=== PATIENT | female | born 1955 | race Caucasian/White ===

== ENCOUNTER 2020-06-27 23:01 | Inpatient (IN) | payer BC, MEDICARE ==
--- NOTE | 2020-06-27 23:15 | ED ---
Altered Mental Status HPI - General Stated Complaint: Altered Mental Status Time Seen by Provider: 06/27/20 23:12 Source: RN notes reviewed, old records reviewed Limitations: no limitations - History of Present Illness Initial Comments: This is a 65-year-old female DF for evaluation patient has by EMS for altered mental status decreased level responsiveness. Patient's seen by who wanted EMS called for patient to be evaluated MD Complaint: altered mental status, confusion, decreased responsiveness, weakness -: unknown Severity: moderate Consistency of Symptoms: getting worse Context: history of similar presentation, recent fever, seizure disorder Associated Symptoms: denies other symptoms Treatments Prior to Arrival: IV fluid, oxygen - Related Data Allergies Allergy/AdvReac Type Severity Reaction Status Date / Time codeine Allergy Rash/Hives Verified 06/27/20 23:22 Review of Systems ROS Statement: Those systems with pertinent positive or pertinent negative responses have been documented in the HPI. ROS Other: All systems not noted in ROS Statement are negative. General Exam Limitations: altered mental status, physical limitation General appearance: alert, in no apparent distress, lethargic, obese Head exam: Present: atraumatic, normocephalic, normal inspection Eye exam: Present: normal appearance, PERRL, EOMI. Absent: scleral icterus, conjunctival injection, periorbital swelling ENT exam: Present: normal exam, mucous membranes moist Neck exam: Present: normal inspection. Absent: tenderness, meningismus, lymphadenopathy Respiratory exam: Present: decreased breath sounds. Absent: respiratory distress, wheezes, rales, rhonchi, stridor Cardiovascular Exam: Present: normal rhythm, tachycardia, normal heart sounds. Absent: systolic murmur, diastolic murmur, rubs, gallop, clicks GI/Abdominal exam: Present: soft, normal bowel sounds. Absent: distended, tenderness, guarding, rebound, rigid Extremities exam: Present: normal inspection, full ROM, normal capillary refill. Absent: tenderness, pedal edema, joint swelling, calf tenderness Back exam: Present: normal inspection Neurological exam: Present: alert, oriented X3, CN II-XII intact Psychiatric exam: Present: normal affect, normal mood Skin exam: Present: warm, dry, intact, normal color. Absent: rash Course Vital Signs 06/27/20 23:04 Temperature 98.2 F Pulse Rate 123 H Respiratory 24 Rate Blood Pressure 137/78 O2 Sat by Pulse 98 Oximetry - Reevaluation(s) Reevaluation #1: 06/28/20 00:48 Medical record is reviewed Reevaluation #2: 06/28/20 00:48 Patient showing mild to moderate clinical improvement Reevaluation #3: 06/28/20 00:48 No recurrent seizure here in the ER Medical Decision Making - Medical Decision Making 65 female DF for evaluation of severe weakness altered mental status likely seizure with postictal. Patient does have mild non-ST elevated RI with significant dehydration kidney injury urinary tract infection - Lab Data Result diagrams: 06/27/20 23:27 06/27/20 23:27 Lab Results 06/27/20 06/27/20 06/27/20 Range/Units 23:27 23:27 23:27 WBC 14.2 H (3.8-10.6) k/uL RBC 4.43 (3.80-5.40) m/uL Hgb 14.4 (11.4-16.0) gm/dL Hct 42.3 (34.0-46.0) % MCV 95.6 (80.0-100.0) fL MCH 32.6 (25.0-35.0) pg MCHC 34.1 (31.0-37.0) g/dL RDW 13.9 (11.5-15.5) % Plt Count 298 (150-450) k/uL MPV 7.6 Neutrophils % 82 % Lymphocytes % 8 % Monocytes % 7 % Eosinophils % 1 % Basophils % 0 % Neutrophils # 11.7 H (1.3-7.7) k/uL Lymphocytes # 1.2 (1.0-4.8) k/uL Monocytes # 1.0 (0-1.0) k/uL Eosinophils # 0.1 (0-0.7) k/uL Basophils # 0.0 (0-0.2) k/uL PT 10.8 (9.0-12.0) sec INR 1.0 (<1.2) APTT 25.4 (22.0-30.0) sec Sodium (137-145) mmol/L Potassium (3.5-5.1) mmol/L Chloride (98-107) mmol/L Carbon Dioxide (22-30) mmol/L Anion Gap mmol/L BUN (7-17) mg/dL Creatinine (0.52-1.04) mg/dL Est GFR (CKD-EPI)AfAm (>60 ml/min/1.73 sqM) Est GFR (CKD-EPI)NonAf (>60 ml/min/1.73 sqM) Glucose (74-99) mg/dL POC Glucose (mg/dL) (75-99) mg/dL POC Glu [employer] ID Plasma Lactic Acid Bob (0.7-2.0) mmol/L Calcium (8.4-10.2) mg/dL Magnesium (1.6-2.3) mg/dL Total Bilirubin (0.2-1.3) mg/dL AST (14-36) U/L ALT (4-34) U/L Alkaline Phosphatase (38-126) U/L Ammonia (<30) umol/L Lactate Dehydrogenase (313-618) U/L Creatine Kinase (30-135) U/L Troponin I (0.000-0.034) ng/mL C-Reactive Protein (<1.0) mg/dL Total Protein (6.3-8.2) g/dL Albumin (3.5-5.0) g/dL Urine Color Yellow Urine Appearance Turbid H (Clear) Urine pH 8.0 (5.0-8.0) Ur Specific [place] 1.013 (1.001-1.035) Urine Protein 2+ H (Negative) Urine Glucose (UA) Negative (Negative) Urine Ketones Negative (Negative) Urine Blood Large H (Negative) Urine Nitrite Positive H (Negative) Urine Bilirubin Negative (Negative) Urine Urobilinogen <2.0 (<2.0) mg/dL Ur Leukocyte Esterase Large H (Negative) Urine RBC 140 H (0-5) /hpf Urine WBC >182 H (0-5) /hpf Ur Squamous Epith Cells 6 H (0-4) /hpf Amorphous Sediment Rare H (None) /hpf Urine Bacteria Many H (None) /hpf Urine Mucus Occasional H (None) /hpf Urine Yeast (Budding) Many H (None) /hpf Urine Opiates Screen Not Detected (NotDetected) Ur Oxycodone Screen Not Detected (NotDetected) Urine Methadone Screen Not Detected (NotDetected) Ur Propoxyphene Screen Not Detected (NotDetected) Ur Barbiturates Screen Not Detected (NotDetected) U Tricyclic Antidepress Not Detected (NotDetected) Ur Phencyclidine Scrn Not Detected (NotDetected) Ur Amphetamines Screen Not Detected (NotDetected) U Methamphetamines Scrn Not Detected (NotDetected) U Benzodiazepines Scrn Not Detected (NotDetected) Urine Cocaine Screen Not Detected (NotDetected) U Marijuana (THC) Screen Not Detected (NotDetected) Serum Alcohol mg/dL 06/27/20 06/27/20 06/27/20 Range/Units 23:27 23:27 23:27 WBC (3.8-10.6) k/uL RBC (3.80-5.40) m/uL Hgb (11.4-16.0) gm/dL Hct (34.0-46.0) % MCV (80.0-100.0) fL MCH (25.0-35.0) pg MCHC (31.0-37.0) g/dL RDW (11.5-15.5) % Plt Count (150-450) k/uL MPV Neutrophils % % Lymphocytes % % Monocytes % % Eosinophils % % Basophils % % Neutrophils # (1.3-7.7) k/uL Lymphocytes # (1.0-4.8) k/uL Monocytes # (0-1.0) k/uL Eosinophils # (0-0.7) k/uL Basophils # (0-0.2) k/uL PT (9.0-12.0) sec INR (<1.2) APTT (22.0-30.0) sec Sodium 128 L (137-145) mmol/L Potassium 4.0 (3.5-5.1) mmol/L Chloride 91 L (98-107) mmol/L Carbon Dioxide 27 (22-30) mmol/L Anion Gap 10 mmol/L BUN 20 H (7-17) mg/dL Creatinine 0.79 (0.52-1.04) mg/dL Est GFR (CKD-EPI)AfAm >90 (>60 ml/min/1.73 sqM) Est GFR (CKD-EPI)NonAf 80 (>60 ml/min/1.73 sqM) Glucose 166 H (74-99) mg/dL POC Glucose (mg/dL) (75-99) mg/dL POC Glu [employer] ID Plasma Lactic Acid Bob 2.2 H* (0.7-2.0) mmol/L Calcium 9.2 (8.4-10.2) mg/dL Magnesium 1.6 (1.6-2.3) mg/dL Total Bilirubin 0.6 (0.2-1.3) mg/dL AST 26 (14-36) U/L ALT 13 (4-34) U/L Alkaline Phosphatase 108 (38-126) U/L Ammonia <9 (<30) umol/L Lactate Dehydrogenase 620 H (313-618) U/L Creatine Kinase 28 L (30-135) U/L Troponin I 0.184 H* (0.000-0.034) ng/mL C-Reactive Protein 21.3 H (<1.0) mg/dL Total Protein 5.8 L (6.3-8.2) g/dL Albumin 2.8 L (3.5-5.0) g/dL Urine Color Urine Appearance (Clear) Urine pH (5.0-8.0) Ur Specific [place] (1.001-1.035) Urine Protein (Negative) Urine Glucose (UA) (Negative) Urine Ketones (Negative) Urine Blood (Negative) Urine Nitrite (Negative) Urine Bilirubin (Negative) Urine Urobilinogen (<2.0) mg/dL Ur Leukocyte Esterase (Negative) Urine RBC (0-5) /hpf Urine WBC (0-5) /hpf Ur Squamous Epith Cells (0-4) /hpf Amorphous Sediment (None) /hpf Urine Bacteria (None) /hpf Urine Mucus (None) /hpf Urine Yeast (Budding) (None) /hpf Urine Opiates Screen (NotDetected) Ur Oxycodone Screen (NotDetected) Urine Methadone Screen (NotDetected) Ur Propoxyphene Screen (NotDetected) Ur Barbiturates Screen (NotDetected) U Tricyclic Antidepress (NotDetected) Ur Phencyclidine Scrn (NotDetected) Ur Amphetamines Screen (NotDetected) U Methamphetamines Scrn (NotDetected) U Benzodiazepines Scrn (NotDetected) Urine Cocaine Screen (NotDetected) U Marijuana (THC) Screen (NotDetected) Serum Alcohol <10 mg/dL 06/27/20 Range/Units 23:32 WBC (3.8-10.6) k/uL RBC (3.80-5.40) m/uL Hgb (11.4-16.0) gm/dL Hct (34.0-46.0) % MCV (80.0-100.0) fL MCH (25.0-35.0) pg MCHC (31.0-37.0) g/dL RDW (11.5-15.5) % Plt Count (150-450) k/uL MPV Neutrophils % % Lymphocytes % % Monocytes % % Eosinophils % % Basophils % % Neutrophils # (1.3-7.7) k/uL Lymphocytes # (1.0-4.8) k/uL Monocytes # (0-1.0) k/uL Eosinophils # (0-0.7) k/uL Basophils # (0-0.2) k/uL PT (9.0-12.0) sec INR (<1.2) APTT (22.0-30.0) sec Sodium (137-145) mmol/L Potassium (3.5-5.1) mmol/L Chloride (98-107) mmol/L Carbon Dioxide (22-30) mmol/L Anion Gap mmol/L BUN (7-17) mg/dL Creatinine (0.52-1.04) mg/dL Est GFR (CKD-EPI)AfAm (>60 ml/min/1.73 sqM) Est GFR (CKD-EPI)NonAf (>60 ml/min/1.73 sqM) Glucose (74-99) mg/dL POC Glucose (mg/dL) 149 H (75-99) mg/dL POC Glu [employer] ID Florian Becerril Plasma Lactic Acid Bob (0.7-2.0) mmol/L Calcium (8.4-10.2) mg/dL Magnesium (1.6-2.3) mg/dL Total Bilirubin (0.2-1.3) mg/dL AST (14-36) U/L ALT (4-34) U/L Alkaline Phosphatase (38-126) U/L Ammonia (<30) umol/L Lactate Dehydrogenase (313-618) U/L Creatine Kinase (30-135) U/L Troponin I (0.000-0.034) ng/mL C-Reactive Protein (<1.0) mg/dL Total Protein (6.3-8.2) g/dL Albumin (3.5-5.0) g/dL Urine Color Urine Appearance (Clear) Urine pH (5.0-8.0) Ur Specific [place] (1.001-1.035) Urine Protein (Negative) Urine Glucose (UA) (Negative) Urine Ketones (Negative) Urine Blood (Negative) Urine Nitrite (Negative) Urine Bilirubin (Negative) Urine Urobilinogen (<2.0) mg/dL Ur Leukocyte Esterase (Negative) Urine RBC (0-5) /hpf Urine WBC (0-5) /hpf Ur Squamous Epith Cells (0-4) /hpf Amorphous Sediment (None) /hpf Urine Bacteria (None) /hpf Urine Mucus (None) /hpf Urine Yeast (Budding) (None) /hpf Urine Opiates Screen (NotDetected) Ur Oxycodone Screen (NotDetected) Urine Methadone Screen (NotDetected) Ur Propoxyphene Screen (NotDetected) Ur Barbiturates Screen (NotDetected) U Tricyclic Antidepress (NotDetected) Ur Phencyclidine Scrn (NotDetected) Ur Amphetamines Screen (NotDetected) U Methamphetamines Scrn (NotDetected) U Benzodiazepines Scrn (NotDetected) Urine Cocaine Screen (NotDetected) U Marijuana (THC) Screen (NotDetected) Serum Alcohol mg/dL - EKG Data -: EKG Interpreted by Me (EKG is sinus tachycardia 125 [place] 156 QRS 84 QTc 441) - Radiology Data Radiology results: report reviewed (CT brain and chest x-ray negative for acute disease), image reviewed Critical Care Time Critical Care Time: Yes Total Critical Care Time: 31 Disposition Clinical Impression: Altered mental status, NSTEMI (non-ST elevated myocardial infarction), Weakness, Postictal coma, Recurrent seizures, Dehydration Disposition: ADMITTED IP TO THIS [facility] Condition: Fair Is patient prescribed a controlled substance at d/c from ED?: No Referrals: Evangelist Talavera MD [Primary Care Provider] - 1-2 days
[2020-06-27] MEDS ORDERED: SODIUM CHLORIDE 0.9% 1,000 ML IV ONE (23:22)
[2020-06-27] MEDS ORDERED: SODIUM CHLORIDE 0.9% 1,000 ML IV STA (23:22)
[2020-06-27] MEDS ORDERED: ACETAMINOPHEN IV (For NPO) 1,000 MG in EMPTY BAG 1 BAG IVPB STA (23:23)
[2020-06-27 23:34] LABS: Glucose,Whole Blood 149 mg/dL (75-99)
[2020-06-27 23:52] LABS: Basophils % (A) 0 %; Eosinophils # (A) 0.1 k/uL (0-0.7); Eosinophils % (A) 1 %; HCT 42.3 % (34.0-46.0); HGB 14.4 gm/dL (11.4-16.0); Lymphocytes # (A) 1.2 k/uL (1.0-4.8); Lymphocytes % (A) 8 %; MCH 32.6 pg (25.0-35.0); MCHC 34.1 g/dL (31.0-37.0); MCV 95.6 fL (80.0-100.0); Mean Platelet Volume 7.6; Monocytes % (A) 7 %; Neutrophils # (A) 11.7 k/uL (1.3-7.7); Neutrophils % (A) 82 %; Platelet Count 298 k/uL (150-450); RBC 4.43 m/uL (3.80-5.40); RDW 13.9 % (11.5-15.5); WBC 14.2 k/uL (3.8-10.6)
[2020-06-28] LABS: ALT 13 U/L (4-34); AST 26 U/L (14-36); African American GFR (CKD) >90 (>60 ml/min/1.73 sqM); Albumin 2.8 g/dL (3.5-5.0); Alcohol <10 mg/dL; Alkaline Phosphatase 108 U/L (38-126); Anion Gap 10 mmol/L; Blood Urea Nitrogen 20 mg/dL (7-17); Calcium 9.2 mg/dL (8.4-10.2); Carbon Dioxide 27 mmol/L (22-30); Chloride 91 mmol/L (98-107); Creatine Kinase 28 U/L (30-135); Glucose 166 mg/dL (74-99); LDH 620 U/L (313-618); Magnesium 1.6 mg/dL (1.6-2.3); Non-African American GFR(CKD) 80 (>60 ml/min/1.73 sqM); Sodium 128 mmol/L (137-145); Total Bilirubin 0.6 mg/dL (0.2-1.3); Total Protein 5.8 g/dL (6.3-8.2)
[2020-06-28 00:03] LABS: Amorphous Sediment,Urine Rare /hpf; Appearance,Urine Turbid (Clear); Bacteria,Urine Many /hpf; Bilirubin,Urine Negative (Negative); Blood,Urine Large (Negative); Budding Yeast,Urine Many /hpf; Color,Urine Yellow; Glucose,Urine (UA) Negative (Negative); Ketones,Urine Negative (Negative); Leukocyte Esterase,Urine Large (Negative); Mucus,Urine Occasional /hpf; Nitrite,Urine Positive (Negative); Protein,Urine 2+ (Negative); RBC,Urine 140 /hpf (0-5); Specific Gravity,Urine 1.013 (1.001-1.035); Squamous Epithelial Cell,Urine 6 /hpf (0-4); Urobilinogen,Urine <2.0 mg/dL (<2.0); WBC,Urine >182 /hpf (0-5)
--- NOTE | 2020-06-28 00:14 | XR ---
EXAMINATION TYPE: XR chest 1V portable DATE OF EXAM: 06/27/2020 COMPARISON: NONE HISTORY: Pneumonia. Short of breath. TECHNIQUE: FINDINGS: There is some linear infiltrate and atelectasis at the lung bases. Heart size is normal. Th ere is no heart failure. There are chest leads. Costophrenic angles are clear. Thoracic aorta is athe romatous. IMPRESSION: Linear mild infiltrate and atelectasis at the lung bases. No heart failure.
--- NOTE | 2020-06-28 00:16 | CT ---
EXAMINATION TYPE: CT brain wo con DATE OF EXAM: 06/27/2020 COMPARISON: None HISTORY: Altered mental status CT DLP: mGycm Automated exposure control for dose reduction was used. There is some cerebral cortical atrophy. There is no mass effect nor midline shift. There is no sign of intracranial hemorrhage. There is mild enlargement of the ventricles. There is mild hypodensity ar ound the lateral ventricles in the periventricular white matter. The calvarium is intact. The skull b ase is intact. There is increased density in the right mastoid sinuses. IMPRESSION: Cerebral atrophy. Mild hydrocephalus. No acute intracranial abnormality. Right-sided mastoiditis.
[2020-06-28 00:18] LABS: Partial Thromboplastin Time 25.4 sec (22.0-30.0); Prothrombin Time 10.8 sec (9.0-12.0)
[2020-06-28 00:21] LABS: Amphetamine Screen,Urine Not Detected (NotDetected); Barbiturate Screen,Urine Not Detected (NotDetected); Benzodiazepines Screen,Urine Not Detected (NotDetected); Cocaine Screen,Urine Not Detected (NotDetected); Methadone Screen, Urine Not Detected (NotDetected); Opiate Screen,Urine Not Detected (NotDetected); Oxycodone Screen, Urine Not Detected (NotDetected); Phencyclidine Screen,Urine Not Detected (NotDetected); Tricyclic Antidepressant,Urine Not Detected (NotDetected); Urn Cannabinoid Scrn Not Detected (NotDetected)
[2020-06-28 00:25] LABS: C Reactive Protein 21.3 mg/dL (<1.0)
[2020-06-28 00:29] LABS: Lactic Acid, Venous 2.2 mmol/L (0.7-2.0)
[2020-06-28] MEDS ORDERED: NITROGLYCERIN SL TABS 0.4 MG TAB SUBLINGUAL PRN (00:44)
[2020-06-28] MEDS ORDERED: MORPHINE SULFATE 4 MG/ML SYRINGE IV PRN (00:44)
[2020-06-28] MEDS: SODIUM CHLORIDE 0.9% 1,000 ML IV SCH ×3 (03:48→23:19)
[2020-06-28] MEDS ORDERED: FUROSEMIDE 10 MG/ML 4 ML VIAL IVP STA (04:51)
--- NOTE | 2020-06-28 05:22 | P.HPIM ---
History of Present Illness H&P Date: 06/28/20 The patient is a 65-year-old female with an extensive PMH including dementia, severe obesity, bedridden at [facility], indwelling Nunez catheter, A. fib on Eliquis, seizure disorder, and stage IV decubitus ulcer who was sent in from the nursing facility due to worsening mental status. The patient was a very poor historian and thereby history obtained from the chart and the emergency room physician. The patient who is normally oriented to self and place as per the notes from [facility] was noted to have hematuria earlier on 06/27 along with worsening confusion for which she was sent in. The patient only answered basic questions such as her name and that she was at a hospital. She would simply stare when asked any additional questions. She underwent an extensive evaluation in the emergency room with a brain CT showing atrophy, mild hydrocephalus, and right-sided mastoiditis. EKG revealed sinus tachycardia with LVH at 125 bpm. Chest x-ray revealed a linear mild infiltrate and atelectasis at the lung bases with no CHF. Laboratory evaluation was remarkable for lactic acid 2.2, troponin 0.184, grossly abnormal UA, sodium 128, chloride 91, BUN 20, valproic acid level 42.5, and WBC count 14.2. Review of Systems ROS unobtainable: due to mental status Past Medical History Past Medical History: Atrial Fibrillation, Diabetes Mellitus, Seizure Disorder Additional Past Medical History / Comment(s): hypomagnesemia, Hypokalemia, Lymphedema, pressure ulcer stage 4 on buttocks, pulmonary fibrosis, encephalopathy, congnitive deficits, chronic IDC with UTI History of Any Multi-Drug Resistant Organisms: Unobtainable Past Surgical History: Unable to Obtain Past Psychological History: Unable to Obtain Smoking Status: Unknown if ever smoked Past Alcohol Use History: Unable to Obtain Past Drug Use History: Unable to Obtain Medications and Allergies Allergies Allergy/AdvReac Type Severity Reaction Status Date / Time codeine Allergy Rash/Hives Verified 06/27/20 23:22 Physical Exam Vitals: Vital Signs Temp Pulse Resp BP Pulse Ox 06/28/20 03:31 104 H 18 114/70 94 L 06/28/20 03:00 92 19 132/53 94 L 06/28/20 02:00 98.7 F 88 20 116/89 97 06/28/20 01:04 66 22 115/61 06/27/20 23:04 98.2 F 123 H 24 137/78 98 Intake and Output 06/27/20 06/27/20 06/28/20 14:59 22:59 06:59 Other: Weight 217.724 kg General: Chronically ill-appearing female, no acute distress, appears older than stated age, severely obese Derm: Left 4-5 cm gluteal unstageable ulcer, stage II ulcers on left lateral hip and left ankle, no unusual ecchymoses, warm, dry Head: atraumatic, normocephalic, symmetric Eyes: EOMI, no lid lag, anicteric sclera, pupils equal round reactive to light ENT: Nose and ears atraumatic, no thrush, no pharyngeal erythema Neck: No thyromegaly, no cervical lymphadenopathy, trachea midline, supple Mouth: no lip lesion, mucus membranes moist Cardiovascular: S1S2 reg, tachycardic, no murmur, positive posterior tibial pulse bilateral, 1+ edema bilaterally lower extremities, capillary refill less than 2 seconds Lungs: Some scattered rhonchi, no rales , no accessory muscle use Abdominal: soft, nontender to palpation, no guarding, no appreciable or ganomegaly, normal bowel sounds Ext: no gross muscle atrophy, unable to assess strength as patient not following commands, no contractures, Neuro: Unable to perform Psych: Awake, oriented only to person and knows that she is in a hospital Results CBC & Chem 7: 06/27/20 23:27 06/27/20 23:27 Labs: Abnormal Lab Results - Last 24 Hours (Table) 06/27/20 06/27/20 06/27/20 Range/Units 23:27 23:27 23:27 WBC 14.2 H (3.8-10.6) k/uL Neutrophils # 11.7 H (1.3-7.7) k/uL Sodium 128 L (137-145) mmol/L Chloride 91 L (98-107) mmol/L BUN 20 H (7-17) mg/dL Glucose 166 H (74-99) mg/dL POC Glucose (mg/dL) (75-99) mg/dL Plasma Lactic Acid Bob (0.7-2.0) mmol/L Lactate Dehydrogenase 620 H (313-618) U/L Creatine Kinase 28 L (30-135) U/L Troponin I (0.000-0.034) ng/mL C-Reactive Protein 21.3 H (<1.0) mg/dL Total Protein 5.8 L (6.3-8.2) g/dL Albumin 2.8 L (3.5-5.0) g/dL Urine Appearance Turbid H (Clear) Urine Protein 2+ H (Negative) Urine Blood Large H (Negative) Urine Nitrite Positive H (Negative) Ur Leukocyte Esterase Large H (Negative) Urine RBC 140 H (0-5) /hpf Urine WBC >182 H (0-5) /hpf Ur Squamous Epith Cells 6 H (0-4) /hpf Amorphous Sediment Rare H (None) /hpf Urine Bacteria Many H (None) /hpf Urine Mucus Occasional H (None) /hpf Urine Yeast (Budding) Many H (None) /hpf 06/27/20 06/27/20 06/27/20 Range/Units 23:27 23:27 23:32 WBC (3.8-10.6) k/uL Neutrophils # (1.3-7.7) k/uL Sodium (137-145) mmol/L Chloride (98-107) mmol/L BUN (7-17) mg/dL Glucose (74-99) mg/dL POC Glucose (mg/dL) 149 H (75-99) mg/dL Plasma Lactic Acid Bob 2.2 H* (0.7-2.0) mmol/L Lactate Dehydrogenase (313-618) U/L Creatine Kinase (30-135) U/L Troponin I 0.184 H* (0.000-0.034) ng/mL C-Reactive Protein (<1.0) mg/dL Total Protein (6.3-8.2) g/dL Albumin (3.5-5.0) g/dL Urine Appearance (Clear) Urine Protein (Negative) Urine Blood (Negative) Urine Nitrite (Negative) Ur Leukocyte Esterase (Negative) Urine RBC (0-5) /hpf Urine WBC (0-5) /hpf Ur Squamous Epith Cells (0-4) /hpf Amorphous Sediment (None) /hpf Urine Bacteria (None) /hpf Urine Mucus (None) /hpf Urine Yeast (Budding) (None) /hpf Assessment and Plan Plan: Altered mental status, slightly worse from baseline, possibly due to UTI versus breakthrough seizure -Valproic acid level slightly subtherapeutic -Seizure precautions for now -Continue with the home Depakote dose -Neurology consult -Continue ceftriaxone -Follow cultures Troponin elevation, may be type II MO due to acute illness vs ACS -Patient currently on Eliquis for A. fib -Continue with aspirin -Cardiology consult -Cardiac monitoring -Trend troponin Hyponatremia -May be due to poor oral intake -Monitor for now Lactic acidosis -Continue with IV fluids -Monitor for resolution L buttock unstageable ulcer -Wound care consult Chronic conditions: Type II DM, A. fib -Continue home meds -Lispro sliding scale -Check A1C DVT prophylaxis -Eliquis The patient is admitted with an anticipated greater than 2 midnight stay for evaluation of AMS CODE STATUS: Full Code Discussed with: Patient, RN Anticipated discharge date: 2-[address]: Home A total of 35 minutes was spent on the care of this complex patient more than 50% of the time was spent in counseling and care coordination.
[2020-06-28 05:51] LABS: Glucose,Whole Blood 156 mg/dL (75-99)
[2020-06-28 06:20] LABS: HCT 37.9 % (34.0-46.0); HGB 13.2 gm/dL (11.4-16.0); MCH 33.2 pg (25.0-35.0); MCHC 34.9 g/dL (31.0-37.0); MCV 95.1 fL (80.0-100.0); Mean Platelet Volume 8.6; Platelet Count 257 k/uL (150-450); RBC 3.98 m/uL (3.80-5.40); RDW 13.8 % (11.5-15.5); WBC 13.8 k/uL (3.8-10.6)
[2020-06-28] MEDS: INSULIN ASPART (NovoLOG) 100 UNIT/ML VIAL SQ SCH ×4 (07:07→20:27)
[2020-06-28] MEDS: ATORVASTATIN 80 MG TAB PO SCH (09:47)
[2020-06-28 10:01] LABS: African American GFR (CKD) >90 (>60 ml/min/1.73 sqM); Anion Gap 11 mmol/L; Blood Urea Nitrogen 20 mg/dL (7-17); Calcium 8.5 mg/dL (8.4-10.2); Carbon Dioxide 24 mmol/L (22-30); Chloride 94 mmol/L (98-107); Glucose 136 mg/dL (74-99); Non-African American GFR(CKD) >90 (>60 ml/min/1.73 sqM); Sodium 129 mmol/L (137-145)
[2020-06-28 10:05] LABS: Magnesium 1.6 mg/dL (1.6-2.3)
--- NOTE | 2020-06-28 11:48 | P.PN ---
Subjective Progress Note Date: 06/28/20 Principal diagnosis: confusion Patient is not able to express any complaints. She would simply stare when asked any questions Objective - Vital Signs Vital signs: Vital Signs Temp 98.2 F 06/28/20 08:40 Pulse 82 06/28/20 08:40 Resp 16 06/28/20 08:40 BP 123/75 06/28/20 08:40 Pulse Ox 97 06/28/20 08:40 Intake & Output 06/27/20 06/28/20 06/28/20 18:59 06:59 18:59 Intake Total 125 Output Total 1000 Balance -875 Weight 302.8 kg Intake: Oral 125 Output: Urine 1000 Other: Voiding Method Indwelling Catheter Indwelling Catheter # Voids 0 # Bowel Movements 0 - Exam General: Chronically ill-appearing female, no acute distress, appears older than stated age, severely obese Derm: Left 4-5 cm gluteal unstageable ulcer, stage II ulcers on left lateral hip and left ankle, no unusual ecchymoses, warm, dry Head: atraumatic, normocephalic, symmetric Eyes: EOMI, no lid lag, anicteric sclera, pupils equal round reactive to light ENT: Nose and ears atraumatic, no thrush, no pharyngeal erythema Neck: No thyromegaly, no cervical lymphadenopathy, trachea midline, supple Mouth: no lip lesion, mucus membranes moist Cardiovascular: S1S2 reg, tachycardic, no murmur, positive posterior tibial puls e bilateral, 1+ edema bilaterally lower extremities, capillary refill less than 2 seconds Lungs: Some scattered rhonchi, no rales , no accessory muscle use Abdominal: soft, nontender to palpation, no guarding, no appreciable organomegaly, normal bowel sounds Ext: no gross muscle atrophy, unable to assess strength as patient not following commands, no contractures, Neuro: Unable to perform Psych: Awake, oriented only to person and knows that she is in a hospital - Labs CBC & Chem 7: 06/28/20 05:43 06/28/20 09:34 Labs: Abnormal Lab Results - Last 24 Hours (Table) 06/27/20 06/27/20 06/27/20 Range/Units 23:27 23:27 23:27 WBC 14.2 H (3.8-10.6) k/uL Neutrophils # 11.7 H (1.3-7.7) k/uL Sodium 128 L (137-145) mmol/L Chloride 91 L (98-107) mmol/L BUN 20 H (7-17) mg/dL Glucose 166 H (74-99) mg/dL POC Glucose (mg/dL) (75-99) mg/dL Plasma Lactic Acid Bob (0.7-2.0) mmol/L Lactate Dehydrogenase 620 H (313-618) U/L Creatine Kinase 28 L (30-135) U/L Troponin I (0.000-0.034) ng/mL C-Reactive Protein 21.3 H (<1.0) mg/dL Total Protein 5.8 L (6.3-8.2) g/dL Albumin 2.8 L (3.5-5.0) g/dL Urine Appearance Turbid H (Clear) Urine Protein 2+ H (Negative) Urine Blood Large H (Negative) Urine Nitrite Positive H (Negative) Ur Leukocyte Esterase Large H (Negative) Urine RBC 140 H (0-5) /hpf Urine WBC >182 H (0-5) /hpf Ur Squamous Epith Cells 6 H (0-4) /hpf Amorphous Sediment Rare H (None) /hpf Urine Bacteria Many H (None) /hpf Urine Mucus Occasional H (None) /hpf Urine Yeast (Budding) Many H (None) /hpf 06/27/20 06/27/20 06/27/20 Range/Units 23:27 23:27 23:32 WBC (3.8-10.6) k/uL Neutrophils # (1.3-7.7) k/uL Sodium (137-145) mmol/L Chloride (98-107) mmol/L BUN (7-17) mg/dL Glucose (74-99) mg/dL POC Glucose (mg/dL) 149 H (75-99) mg/dL Plasma Lactic Acid Bob 2.2 H* (0.7-2.0) mmol/L Lactate Dehydrogenase (313-618) U/L Creatine Kinase (30-135) U/L Troponin I 0.184 H* (0.000-0.034) ng/mL C-Reactive Protein (<1.0) mg/dL Total Protein (6.3-8.2) g/dL Albumin (3.5-5.0) g/dL Urine Appearance (Clear) Urine Protein (Negative) Urine Blood (Negative) Urine Nitrite (Negative) Ur Leukocyte Esterase (Negative) Urine RBC (0-5) /hpf Urine WBC (0-5) /hpf Ur Squamous Epith Cells (0-4) /hpf Amorphous Sediment (None) /hpf Urine Bacteria (None) /hpf Urine Mucus (None) /hpf Urine Yeast (Budding) (None) /hpf 06/28/20 06/28/20 06/28/20 Range/Units 02:22 05:43 05:43 WBC 13.8 H (3.8-10.6) k/uL Neutrophils # (1.3-7.7) k/uL Sodium (137-145) mmol/L Chloride (98-107) mmol/L BUN (7-17) mg/dL Glucose (74-99) mg/dL POC Glucose (mg/dL) (75-99) mg/dL Plasma Lactic Acid Bob (0.7-2.0) mmol/L Lactate Dehydrogenase (313-618) U/L Creatine Kinase (30-135) U/L Troponin I 0.159 H* 0.155 H* (0.000-0.034) ng/mL C-Reactive Protein (<1.0) mg/dL Total Protein (6.3-8.2) g/dL Albumin (3.5-5.0) g/dL Urine Appearance (Clear) Urine Protein (Negative) Urine Blood (Negative) Urine Nitrite (Negative) Ur Leukocyte Esterase (Negative) Urine RBC (0-5) /hpf Urine WBC (0-5) /hpf Ur Squamous Epith Cells (0-4) /hpf Amorphous Sediment (None) /hpf Urine Bacteria (None) /hpf Urine Mucus (None) /hpf Urine Yeast (Budding) (None) /hpf 06/28/20 06/28/20 Range/Units 05:49 09:34 WBC (3.8-10.6) k/uL Neutrophils # (1.3-7.7) k/uL Sodium 129 L (137-145) mmol/L Chloride 94 L (98-107) mmol/L BUN 20 H (7-17) mg/dL Glucose 136 H (74-99) mg/dL POC Glucose (mg/dL) 156 H (75-99) mg/dL Plasma Lactic Acid Bob (0.7-2.0) mmol/L Lactate Dehydrogenase (313-618) U/L Creatine Kinase (30-135) U/L Troponin I (0.000-0.034) ng/mL C-Reactive Protein (<1.0) mg/dL Total Protein (6.3-8.2) g/dL Albumin (3.5-5.0) g/dL Urine Appearance (Clear) Urine Protein (Negative) Urine Blood (Negative) Urine Nitrite (Negative) Ur Leukocyte Esterase (Negative) Urine RBC (0-5) /hpf Urine WBC (0-5) /hpf Ur Squamous Epith Cells (0-4) /hpf Amorphous Sediment (None) /hpf Urine Bacteria (None) /hpf Urine Mucus (None) /hpf Urine Yeast (Budding) (None) /hpf Microbiology - Last 24 Hours (Table) 06/27/20 23:27 Urine Culture - Preliminary Urine,Voided Assessment and Plan Plan: Altered mental status, slightly worse from baseline, possibly due to UTI versus breakthrough seizure -Valproic acid level slightly subtherapeutic -Seizure precautions for now -Continue with the home Depakote dose -Neurology consult -Continue ceftriaxone -Follow cultures Troponin elevation, likely sec to acute illness, r/o ACS -Patient currently on Eliquis for A. fib -Continue with aspirin -Cardiology consult -Cardiac monitoring Hyponatremia -May be due to poor oral intake -Monitor for now Lactic acidosis -Continue with IV fluids -Monitor for resolution L buttock unstageable ulcer -Wound care consult Chronic conditions: Type II DM, A. fib -Continue home meds -Lispro sliding scale -Check A1C DVT prophylaxis -Eliquis CODE STATUS: Full Code Discussed with: Patient, RN Anticipated discharge date: 2-[address]: [facility]. A total of 35 minutes was spent on the care of this complex patient more than 50% of the time was spent in counseling and care coordination.
[2020-06-28 12:05] LABS: Glucose,Whole Blood 151 mg/dL (75-99)
[2020-06-28 15:20] LABS: Hemoglobin A1C 5.7 % (4.0-6.0)
[2020-06-28 16:47] LABS: Glucose,Whole Blood 123 mg/dL (75-99)
--- NOTE | 2020-06-28 19:12 | P.CRDCN ---
History of Present Illness History of present illness: HISTORY OF PRESENTING ILLNESS Patient is a pleasant 65-year-old female with history of dementia, obesity, bedridden at night a lot, A. fib on L D[place], Nunez catheter, seizure disorder, decubitus ulcers, diabetes mellitus. Patient is not answering questions and therefore history is supplied per the chart. Apparently patient normally alert to self and place however was noted to be altered on 06/27 and therefore was sent emergency department. A CT brain was performed which showed cerebral atrophy, mild hydrocephalus, no acute intracranial abnormalities. Chest x-ray was performed which showed mild linear infiltrate and atelectasis at the lung bases, no heart failure. Blood work was performed which showed hemoglobin 14.4, white blood cell count 14.2, sodium 128, BUN 20, creatinine 0.79, venous lactic acid 2.2, AST 26, ALT 13, ammonia less than 9, LDH 620, troponin 0.184, 0.15, 0.159, CRP 21.3, albumin 2.8, urinalysis shows large blood, positive for urine nitrates, large leukocyte esterase, white blood cell greater than 182 and urine toxicology screen was unremarkable other than valproic acid. Patient is noted to have generalized anasarca with diffuse edema. Initially her heart rate was 123, respiratory rate 24, blood pressure 137/78 and 90% on 4 L nasal cannula. EKG was performed and shows sinus tachycardia, normal axis, minimal nonspecific ST depressions. REVIEW OF SYSTEMS At the time of my exam: Unable to supply ROS given AMS PHYSICAL EXAMINATION Vital signs reviewed. CONSTITUTIONAL: No apparent distress, obese, generalized anasarca, pleasant and smiling however confused, not answering questions HEENT: Head is normocephalic. Pupils are equal, round. Sclerae anicteric. Mucous membranes of the mouth are moist. No JVD. No carotid bruit. CHEST EXAMINATION: Lungs are clear to auscultation. No chest wall tenderness is noted on palpation or with deep breathing. HEART EXAMINATION: Regular rate and rhythm. S1, S2 heard. No murmurs, gallops or rub. ABDOMEN: Soft, nontender. Positive bowel sounds. EXTREMITIES: 2+ peripheral pulses, +diffuse upper and lower extremity 2-3+ edema and no calf tenderness. NEUROLOGIC EXAMINATION: Patient is awake, alert ASSESSMENT 1. Elevated troponins of unclear significance, not complaining of any pain 2. Altered mental status 3. Baseline dementia 4. Generalized anasarca 5. Protein calorie malnutrition 6. Urinary tract infection 7. Hyponatremia 8. Decubitus ulcer 9. Mild lactic acidosis PLAN Continue antibiotics for urinary tract infection. Patient's anasarca may be more related to protein calorie malnutrition. Check BNP. Check 2-D echo. Continue with aspirin. Monitor mental status. Further recommendations to follow. Past Medical History Past Medical History: Atrial Fibrillation, Diabetes Mellitus, Seizure Disorder Additional Past Medical History / Comment(s): hypomagnesemia, Hypokalemia, Lymphedema, pressure ulcer stage 4 on buttocks, pulmonary fibrosis, encephalopathy, congnitive deficits, chronic IDC with UTI History of Any Multi-Drug Resistant Organisms: Unobtainable Past Surgical History: Unable to Obtain Past Psychological History: Unable to Obtain Smoking Status: Unknown if ever smoked Past Alcohol Use History: Unable to Obtain Past Drug Use History: Unable to Obtain Medications and Allergies Home Medications Medication Instructions Recorded Confirmed Type Acetaminophen Tab [Tylenol] 650 mg PO Q6H PRN 06/28/20 06/28/20 History Amiodarone [Cordarone] 200 mg PO BID@0800,199906/28/20 06/28/20 History Apixaban [Eliquis] 2.5 mg PO BID@0800,199906/28/20 06/28/20 History Divalproex [Depakote] 250 mg PO TID@0600,1400,2200 06/28/20 06/28/20 History Ergocalciferol (Vitamin D2) 50 mcg PO DAILY@0800 06/28/20 06/28/20 History [Vitamin D2 (2000 Iu)] Furosemide [Lasix] 40 mg PO DAILY@0800 06/28/20 06/28/20 History INSULIN ASPART (NovoLOG) [NovoLOG See Protocol SQ ACHS 06/28/20 06/28/20 History (formulary)] Levothyroxine Sodium [Synthroid] 50 mcg PO DAILY@0800 06/28/20 06/28/20 History Loperamide [Imodium] 2 mg PO Q6H PRN 06/28/20 06/28/20 History Magnesium Oxide [Mag-Ox] 400 mg PO DAILY@0800 06/28/20 06/28/20 History Menthol-Zinc Oxide Oint 1 applic TOPICAL BID@0800,199906/28/20 06/28/20 History [Calmoseptine Oint] Metoprolol Tartrate [Lopressor] 50 mg PO BID@799,199906/28/20 06/28/20 History Multivitamins, Thera [Multivitamin 1 tab PO DAILY@79906/28/20 06/28/20 History (formulary)] Nystatin 100,000 Unit/gm Powd 1 applic TOPICAL BID 06/28/20 06/28/20 History [Mycostatin Powder] Potassium Chloride ER [K-Dur 20] 20 meq PO DAILY@79906/28/20 06/28/20 History Prostat 30 ml PO BID 06/28/20 06/28/20 History S.boulardii/B.coagulans/Fos 471 mg PO DAILY@79906/28/20 06/28/20 History [Diff-Stat 471 mg Capsule] Zinc Oxide [Cozima] 1 applic TOPICAL HS@199906/28/20 06/28/20 History Allergies Allergy/AdvReac Type Severity Reaction Status Date / Time codeine Allergy Rash/Hives Verified 06/28/20 09:05 Milk Containing Products Allergy Unknown Verified 06/28/20 09:05 Physical Exam Vitals: Vital Signs Temp Pulse Pulse Resp BP BP Pulse Ox 06/28/20 16:00 97.6 F 79 17 115/82 99 06/28/20 11:45 97.5 F L 78 16 126/101 98 06/28/20 08:40 98.2 F 82 16 123/75 97 06/28/20 04:25 70 16 06/28/20 04:00 127 H 16 147/72 96 06/28/20 03:31 104 H 18 114/70 94 L 06/28/20 03:00 92 19 132/53 94 L 06/28/20 02:00 98.7 F 88 20 116/89 97 06/28/20 01:04 66 22 115/61 06/27/20 23:04 98.2 F 123 H 24 137/78 98 Intake and Output 06/28/20 06/28/20 06/28/20 06:59 14:59 22:59 Intake Total 250 125 Output Total 1000 Balance -750 125 Intake: Oral 250 125 Output: Urine 1000 Other: Voiding Method Indwelling Catheter Indwelling Catheter # Voids 0 # Bowel Movements 0 0 Weight 302.8 kg Results 06/28/20 05:43 06/28/20 09:34 Cardiac Enzymes 06/27/20 06/27/20 06/28/20 Range/Units 23:27 23:27 02:22 AST 26 (14-36) U/L Lactate Dehydrogenase 620 H (313-618) U/L Troponin I 0.184 H* 0.159 H* (0.000-0.034) ng/mL 06/28/20 Range/Units 05:43 AST (14-36) U/L Lactate Dehydrogenase (313-618) U/L Troponin I 0.155 H* (0.000-0.034) ng/mL Coagulation 06/27/20 Range/Units 23:27 PT 10.8 (9.0-12.0) sec APTT 25.4 (22.0-30.0) sec CBC 06/27/20 06/28/20 Range/Units 23:27 05:43 WBC 14.2 H 13.8 H (3.8-10.6) k/uL RBC 4.43 3.98 (3.80-5.40) m/uL Hgb 14.4 13.2 (11.4-16.0) gm/dL Hct 42.3 37.9 (34.0-46.0) % Plt Count 298 257 (150-450) k/uL Comprehensive Metabolic Panel 06/27/20 06/28/20 Range/Units 23:27 09:34 Sodium 128 L 129 L (137-145) mmol/L Potassium 4.0 4.0 (3.5-5.1) mmol/L Chloride 91 L 94 L (98-107) mmol/L Carbon Dioxide 27 24 (22-30) mmol/L BUN 20 H 20 H (7-17) mg/dL Creatinine 0.79 0.69 (0.52-1.04) mg/dL Glucose 166 H 136 H (74-99) mg/dL Calcium 9.2 8.5 (8.4-10.2) mg/dL AST 26 (14-36) U/L ALT 13 (4-34) U/L Alkaline Phosphatase 108 (38-126) U/L Total Protein 5.8 L (6.3-8.2) g/dL Albumin 2.8 L (3.5-5.0) g/dL Current Medications Generic Name Dose Route Start Last Admin Trade Name Freq PRN Reason Stop Dose Admin Aspirin 325 mg 06/29/20 09:00 Aspirin 325 Mg Tab PO DAILY [facility] Atorvastatin Calcium 80 mg 06/28/20 09:00 06/28/20 09:47 Atorvastatin 80 Mg Tab PO 80 mg DAILY [place] Administration Sodium Chloride 1,000 mls @ 100 mls/hr 06/28/20 00:45 06/28/20 09:47 Saline 0.9% IV Not Given .Q10H [place] Ceftriaxone Sodium 1 gm/ 50 mls @ 100 mls/hr 06/28/20 09:00 06/28/20 09:45 Sodium Chloride IVPB 100 mls/hr Q12HR [place] Administration Insulin Aspart 0 unit 06/28/20 07:30 06/28/20 16:59 Insulin Aspart (Novolog) 100 Unit/Ml Vial SQ Not Given ACHS [place] Protocol Morphine Sulfate 4 mg 06/28/20 00:44 Morphine Sulfate 4 Mg/Ml Syringe IV Q4HR PRN Chest Pain Nitroglycerin 0.4 mg 06/28/20 00:44 Nitroglycerin Sl Tabs 0.4 Mg Tab SUBLINGUAL Q5M PRN Chest Pain Intake and Output 06/28/20 06/28/20 06/28/20 06:59 14:59 22:59 Intake Total 250 125 Output Total 1000 Balance -750 125 Intake: Oral 250 125 Output: Urine 1000 Other: Voiding Method Indwelling Catheter Indwelling Catheter # Voids 0 # Bowel Movements 0 0 Weight 302.8 kg 06/28/20 05:43 06/28/20 09:34
[2020-06-28 19:48] LABS: Glucose,Whole Blood 146 mg/dL (75-99)
--- NOTE | 2020-06-29 01:39 | P.CNNES ---
History of Present Illness Consult date: 06/28/20 Requesting physician: Timur Arteaga Reason for Consult: Breakthrough seizure History of Present Illness: Patient is a 65-year-old female came to the hospital by ambulance yesterday at 11 PM for an episode of altered mental status, confusion, decreased responsiveness and weakness. Patient has cognitive impairment, therefore not able to provide any history. As per EMS flow sheet when they arrived, patient was unresponsive. Staff stated that she was hypoxic with oxygen saturation in the 80s on room air. They placed her on nonrebreather mask. Patient has severe peripheral edema. Patient was alert but lethargic. Patient normally is alert and oriented 2. Patient was nonverbal, but tracked with her eyes, smiled and attempted to talk. There was no facial droop and pupils were equal. At that time oxygen saturation was 93% on room air. Temperature was 102.2 axillary. Patient's catheter was filled with dark cloudy urine. Patient's vitals at the scene was blood pressure 127/74, pulse rate 127, saturation 99% and blood sugar 164. Temperature 102.2 axillary. Vital signs was 137/78, pulse rate 123, temperature 98.2. Pulse rate did improve to 66. CT head showed cerebral atrophy, mild hydrocephalus, no acute intracranial abnormality. Chest x-ray showed linear mild infiltrate and atelectasis at the lung bases. No heart failure. EKG shows sinus tachycardia, LVH with repolarization abnormality. Her blood test shows elevated WBC 13.8 with left shift, hemoglobin 13.2, platelets 257. Sodium 129, potassium 4.0, normal renal functions. Calcium 8.5, magnesium 1.6, troponin is mildly elevated 0.155 jones virus PCR negative. Blood alcohol level negative, urine drug screen negative. UA positive for nitrite, large amount of leukocyte Estrace, 182 WBCs. Urine cultures so far negative. Patient was given Rocephin 2 g in the ER and now on 1 mg every 12 hours. Depakote level is 42.5. Hepatic panel normal. Patient takes Depakote 250 mg 3 times a day, amiodarone 200 mg twice a day, potassium, magnesium, levothyroxine, Lasix 40 mg, insulin, metoprolol 50 mg twice a day, Eliquis 2.5 mg twice a day and vitamin D. Patient states she has no kids, no brothers sisters or family members. Patient states her mom and dad are alive, which I'm not sure about. Per nurse report, she does have a . Patient is bedbound. She has stage IV decubitus ulcers. Patient has lymphedema of the arms and legs. Review of Systems ROS unobtainable: due to mental status Past Medical History Past Medical History: Atrial Fibrillation, Diabetes Mellitus, Seizure Disorder Additional Past Medical History / Comment(s): hypomagnesemia, Hypokalemia, Lymphedema, pressure ulcer stage 4 on buttocks, pulmonary fibrosis, encephalopathy, congnitive deficits, chronic IDC with UTI History of Any Multi-Drug Resistant Organisms: Unobtainable Past Surgical History: Unable to Obtain Past Psychological History: Unable to Obtain Smoking Status: Unknown if ever smoked Past Alcohol Use History: Unable to Obtain Past Drug Use History: Unable to Obtain Medications and Allergies Home Medications Medication Instructions Recorded Confirmed Type Acetaminophen Tab [Tylenol] 650 mg PO Q6H PRN 06/28/20 06/28/20 History Amiodarone [Cordarone] 200 mg PO BID@0800,199906/28/20 06/28/20 History Apixaban [Eliquis] 2.5 mg PO BID@0800,199906/28/20 06/28/20 History Divalproex [Depakote] 250 mg PO TID@0600,1400,2200 06/28/20 06/28/20 History Ergocalciferol (Vitamin D2) 50 mcg PO DAILY@0800 06/28/20 06/28/20 History [Vitamin D2 (2000 Iu)] Furosemide [Lasix] 40 mg PO DAILY@0800 06/28/20 06/28/20 History INSULIN ASPART (NovoLOG) [NovoLOG See Protocol SQ ACHS 06/28/20 06/28/20 History (formulary)] Levothyroxine Sodium [Synthroid] 50 mcg PO DAILY@0800 06/28/20 06/28/20 History Loperamide [Imodium] 2 mg PO Q6H PRN 06/28/20 06/28/20 History Magnesium Oxide [Mag-Ox] 400 mg PO DAILY@0800 06/28/20 06/28/20 History Menthol-Zinc Oxide Oint 1 applic TOPICAL BID@799,199906/28/20 06/28/20 History [Calmoseptine Oint] Metoprolol Tartrate [Lopressor] 50 mg PO BID@08,199906/28/20 06/28/20 History Multivitamins, Thera [Multivitamin 1 tab PO DAILY@79906/28/20 06/28/20 History (formulary)] Nystatin 100,000 Unit/gm Powd 1 applic TOPICAL BID 06/28/20 06/28/20 History [Mycostatin Powder] Potassium Chloride ER [K-Dur 20] 20 meq PO DAILY@0806/28/20 06/28/20 History Prostat 30 ml PO BID 06/28/20 06/28/20 History S.boulardii/B.coagulans/Fos 471 mg PO DAILY@79906/28/20 06/28/20 History [Diff-Stat 471 mg Capsule] Zinc Oxide [Cozima] 1 applic TOPICAL HS@199906/28/20 06/28/20 History Allergies Allergy/AdvReac Type Severity Reaction Status Date / Time codeine Allergy Rash/Hives Verified 06/28/20 09:05 Milk Containing Products Allergy Unknown Verified 06/28/20 09:05 Physical Examination - Vital Signs Vital Signs: Vital Signs Temp Pulse Pulse Resp BP BP Pulse Ox 06/28/20 08:40 98.2 F 82 16 123/75 97 06/28/20 04:25 70 16 06/28/20 04:00 127 H 16 147/72 96 06/28/20 03:31 104 H 18 114/70 94 L 06/28/20 03:00 92 19 132/53 94 L 06/28/20 02:00 98.7 F 88 20 116/89 97 06/28/20 01:04 66 22 115/61 06/27/20 23:04 98.2 F 123 H 24 137/78 98 Intake and Output 06/27/20 06/28/20 06/28/20 22:59 06:59 14:59 Intake Total 125 Output Total 1000 Balance -875 Intake: Oral 125 Output: Urine 1000 Other: Voiding Method Indwelling Catheter Indwelling Catheter # Voids 0 # Bowel Movements 0 Weight 302.8 kg On examination patient is an elderly female, morbidly obese, laying comfortably in the bed. She is in no distress. Patient knows her name, and date of . Could not tell her age. She does not know what current month or what year is it. Does not know name of the state and city she lives in. Patient would stay here at you, and she is addressed for some question. She would just stare. Patient can name, repeat without difficulty. Her speech what ever she spoke was clear with no aphasia or dysarthria or paraphasic errors. Attention, concentration and fund of knowledge is very limited. She has very limited speech. She has very prolonged latency time to answer any question. On cranial nerve examination pupils are 4 mm, round and reacting. Extraocular muscles are intact. Face is symmetric, tongue protrudes the midline. Palatal elevation and sensation is normal. Hearing is slightly decreased, shoulder shrug normal. Patient's joints are very stiff in the upper limbs. She is bedbound. She has cognitive dysfunction, stage IV ulcers in the buttocks per nursing report. Whenever her arms are lifted, she has fine tremors/trembling of the fingers. Her industrial paramedic is only 2-3, slightly better on the right. She cannot curl her fingers. Her shoulders are very stiff, right worse than left. Her elbows are also very stiff. Her elbow can be flexed to about 60 up from the bed whereas the left can be flexed only about 30 from the bed. Her skin is very fragile. She has lymphedema of her arms and legs. She cannot move her legs. She has lymphedema of bilateral lower extremities. Sensations are equal to touch. Deep tendon reflexes are absent and plantars are flat. She has pitting edema in her hands and feet but nonpitting edema proximally. Patient is morbidly obese. Cerebellar functions cannot be tested. Patient is bedbound. Abdomen is soft. No rash. Results - Laboratory Findings CBC and BMP: 06/28/20 05:43 06/28/20 09:34 Abnormal Lab Findings: Abnormal Labs 06/27/20 06/27/20 06/27/20 23:27 23:27 23:27 WBC 14.2 H Neutrophils # 11.7 H Sodium 128 L Chloride 91 L BUN 20 H Glucose 166 H POC Glucose (mg/dL) Plasma Lactic Acid Bob Lactate Dehydrogenase 620 H Creatine Kinase 28 L Troponin I C-Reactive Protein 21.3 H Total Protein 5.8 L Albumin 2.8 L Urine Appearance Turbid H Urine Protein 2+ H Urine Blood Large H Urine Nitrite Positive H Ur Leukocyte Esterase Large H Urine RBC 140 H Urine WBC >182 H Ur Squamous Epith Cells 6 H Amorphous Sediment Rare H Urine Bacteria Many H Urine Mucus Occasional H Urine Yeast (Budding) Many H 06/27/20 06/27/20 06/27/20 23:27 23:27 23:32 WBC Neutrophils # Sodium Chloride BUN Glucose POC Glucose (mg/dL) 149 H Plasma Lactic Acid Bob 2.2 H* Lactate Dehydrogenase Creatine Kinase Troponin I 0.184 H* C-Reactive Protein Total Protein Albumin Urine Appearance Urine Protein Urine Blood Urine Nitrite Ur Leukocyte Esterase Urine RBC Urine WBC Ur Squamous Epith Cells Amorphous Sediment Urine Bacteria Urine Mucus Urine Yeast (Budding) 06/28/20 06/28/20 06/28/20 02:22 05:43 05:43 WBC 13.8 H Neutrophils # Sodium Chloride BUN Glucose POC Glucose (mg/dL) Plasma Lactic Acid Bob Lactate Dehydrogenase Creatine Kinase Troponin I 0.159 H* 0.155 H* C-Reactive Protein Total Protein Albumin Urine Appearance Urine Protein Urine Blood Urine Nitrite Ur Leukocyte Esterase Urine RBC Urine WBC Ur Squamous Epith Cells Amorphous Sediment Urine Bacteria Urine Mucus Urine Yeast (Budding) 06/28/20 06/28/20 06/28/20 05:49 09:34 11:59 WBC Neutrophils # Sodium 129 L Chloride 94 L BUN 20 H Glucose 136 H POC Glucose (mg/dL) 156 H 151 H Plasma Lactic Acid Bob Lactate Dehydrogenase Creatine Kinase Troponin I C-Reactive Protein Total Protein Albumin Urine Appearance Urine Protein Urine Blood Urine Nitrite Ur Leukocyte Esterase Urine RBC Urine WBC Ur Squamous Epith Cells Amorphous Sediment Urine Bacteria Urine Mucus Urine Yeast (Budding) Assessment and Plan Assessment: * Altered mental status, probably due to toxic metabolic encephalopathy. Patient also has underlying cognitive impairment. * Acute UTI * Hyponatremia * Elevated cardiac enzymes * Morbid obesity * Lymphedema * Chronic disability, bedbound status. * Stage IV decubitus ulcer. Plan: * Patient is being treated for UTI with Rocephin. * Treatment of hyponatremia as per IM. * Cardiology on board for elevated cardiac enzymes. * Patient had a normal ammonia, hemoglobin A1c 5.7. * We will check B12, folate. * Patient's computed tomography scan of the head shows some degree of hydrocephalus. I do not believe patient is a candidate for ventriculoperitoneal shunting, based upon her degree of dementia and gait dysfunction (bedbound status). May consider neurosurgery consult an outpatient. * Continue Depakote, her levels are 42.5, which is acceptable.
[2020-06-29 06:24] LABS: Glucose,Whole Blood 168 mg/dL (75-99)
[2020-06-29] MEDS: INSULIN ASPART (NovoLOG) 100 UNIT/ML VIAL SQ SCH ×4 (06:57→20:11)
[2020-06-29] MEDS: SODIUM CHLORIDE 0.9% 1,000 ML IV SCH (08:46)
[2020-06-29] MEDS: ATORVASTATIN 80 MG TAB PO SCH (08:46)
[2020-06-29] MEDS: ASPIRIN 325 MG TAB PO SCH (08:46)
[2020-06-29 09:15] LABS: Basophils # (A) 0.1 k/uL (0-0.2); Basophils % (A) 1 %; Eosinophils # (A) 0.1 k/uL (0-0.7); Eosinophils % (A) 1 %; HCT 41.6 % (34.0-46.0); HGB 13.6 gm/dL (11.4-16.0); Lymphocytes # (A) 0.9 k/uL (1.0-4.8); Lymphocytes % (A) 10 %; MCH 31.2 pg (25.0-35.0); MCHC 32.6 g/dL (31.0-37.0); MCV 95.9 fL (80.0-100.0); Mean Platelet Volume 9.7; Monocytes # (A) 0.8 k/uL (0-1.0); Monocytes % (A) 9 %; Neutrophils # (A) 6.8 k/uL (1.3-7.7); Neutrophils % (A) 78 %; Platelet Count 275 k/uL (150-450); RBC 4.34 m/uL (3.80-5.40); RDW 14.3 % (11.5-15.5); WBC 8.7 k/uL (3.8-10.6)
[2020-06-29 10:45] LABS: African American GFR (CKD) >90 (>60 ml/min/1.73 sqM); Anion Gap 9 mmol/L; Blood Urea Nitrogen 20 mg/dL (7-17); Calcium 8.9 mg/dL (8.4-10.2); Carbon Dioxide 24 mmol/L (22-30); Chloride 94 mmol/L (98-107); Cholesterol 140 mg/dL (<200); Glucose 174 mg/dL (74-99); HDL Cholesterol 35 mg/dL (40-60); LDL Cholesterol,Calculated 81 mg/dL (0-99); Non-African American GFR(CKD) >90 (>60 ml/min/1.73 sqM); Sodium 127 mmol/L (137-145); Triglycerides 120 mg/dL (<150)
[2020-06-29 10:49] LABS: Potassium 3.9 mmol/L (3.5-5.1)
[2020-06-29 11:56] LABS: Glucose,Whole Blood 138 mg/dL (75-99)
--- NOTE | 2020-06-29 15:34 | P.PN ---
Subjective Progress Note Date: 06/29/20 Principal diagnosis: confusion Patient seen and examined at the bedside. Discussed with extensively at the bedside, she was functional up until of last year when she started to become weaker, she had bad knees. Had UTI initially, got weak and was admitted to rehab. Over the past 2-3 months according to her the OR staff had to place a hernandez catheter because it was hard for her to get to use the bathroom, has been bed ridden for that period. Husbands states that every time she gets UTI she gets confused. stated that she had 5-6 hospi talizations in [place] for the UTI and for ''electrolyte imbalances'' the last few months. Objective - Vital Signs Vital signs: Vital Signs Temp 97.5 F L 06/29/20 11:53 Pulse 72 06/29/20 11:53 Resp 17 06/29/20 11:53 BP 162/94 06/29/20 11:53 Pulse Ox 98 06/29/20 11:53 Intake & Output 06/28/20 06/29/20 06/29/20 18:59 06:59 18:59 Intake Total 375 670 Output Total 1000 120 Balance -625 -120 670 Weight 135.6 kg Intake: Intake, IV Titration 50 Amount cefTRIAXone 1 gm In 50 Sodium Chloride 0.9% 50 ml @ 100 mls/hr IVPB Q12HR [facility] Rx#:[id number] Oral 375 620 Output: Urine 1000 120 Other: Voiding Method Indwelling Catheter Indwelling Catheter Indwelling Catheter # Bowel Movements 0 - Exam General: Chronically ill-appearing female, no acute distress, appears older than stated age, severely obese Derm: Left 4-5 cm gluteal unstageable ulcer, stage II ulcers on left lateral hip and left ankle, no unusual ecchymoses, warm, dry Head: atraumatic, normocephalic, symmetric Eyes: EOMI, no lid lag, anicteric sclera, pupils equal round reactive to light ENT: Nose and ears atraumatic, no thrush, no pharyngeal erythema Neck: No thyromegaly, no cervical lymphadenopathy, trachea midline, supple Mouth: no lip lesion, mucus membranes moist Cardiovascular: S1S2 reg, tachycardic, no murmur, positive posterior tibial pulse bilateral, 1+ edema bilaterally lower extremities, capillary refill less than 2 seconds Lungs: Some scattered rhonchi, no rales , no accessory muscle use Abdominal: soft, nontender to palpation, no guarding, no appreciable organomegaly, normal bowel sounds Ext: no gross muscle atrophy, unable to assess strength as patient not following commands, no contractures, Neuro: Unable to perform Psych: Awake, oriented only to person and knows that she is in a hospital - Labs CBC & Chem 7: 06/29/20 08:21 06/29/20 08:21 Labs: Abnormal Lab Results - Last 24 Hours (Table) 06/28/20 06/28/20 06/29/20 Range/Units 16:28 19:46 06:23 Lymphocytes # (1.0-4.8) k/uL Sodium (137-145) mmol/L Chloride (98-107) mmol/L BUN (7-17) mg/dL Glucose (74-99) mg/dL POC Glucose (mg/dL) 123 H 146 H 168 H (75-99) mg/dL HDL Cholesterol (40-60) mg/dL 06/29/20 06/29/20 06/29/20 Range/Units 08:21 08:21 11:43 Lymphocytes # 0.9 L (1.0-4.8) k/uL Sodium 127 L (137-145) mmol/L Chloride 94 L (98-107) mmol/L BUN 20 H (7-17) mg/dL Glucose 174 H (74-99) mg/dL POC Glucose (mg/dL) 138 H (75-99) mg/dL HDL Cholesterol 35 L (40-60) mg/dL Microbiology - Last 24 Hours (Table) 06/27/20 23:27 Urine Culture - Preliminary Urine,Voided Proteus spec 06/27/20 23:30 Blood Culture - Preliminary Blood No Growth after 24 hours 06/27/20 23:15 Blood Culture - Preliminary Blood No Growth after 24 hours Assessment and Plan Plan: Metabolic encephalopathy due to UTI -Continue with the home Depakote dose -Neurology following -Continue ceftriaxone, cultures growing proteus. Follow sensitivities. Troponin elevation, likely sec to acute illness/UTI -Patient currently on Eliquis for A. fib -Continue with aspirin -Cardiology recommending echo. -Cardiac monitoring Hyponatremia/anasarca -Likely hypervolemic sec to third spacing, low albumin. R/O CHF, echo ordered. -Consult nephrology -Start lasix Lactic acidosis -Resolved. L buttock unstageable ulcer -Wound care consult. Seems likely that patient has a hernandez sec to this, will change catheter today. D/w nurse Chronic conditions: Type II DM, A. fib -Continue home meds -Lispro sliding scale -A1C ok General weakness PT and OT DVT prophylaxis -Eliquis CODE STATUS: Full Code Discussed with: Patient, RN Anticipated discharge date: 2-[address]: [facility]. A total of 35 minutes was spent on the care of this complex patient more than 50% of the time was spent in counseling and care coordination.
[2020-06-29 16:56] LABS: Glucose,Whole Blood 120 mg/dL (75-99)
--- NOTE | 2020-06-29 19:43 | P.PN ---
Subjective HISTORY OF PRESENTING ILLNESS Patient is a pleasant 65-year-old female with history of dementia, obesity, bedridden at night a lot, A. fib on L Dago, Nunez catheter, seizure disorder, decubitus ulcers, diabetes mellitus. Patient is not answering questions and therefore history is supplied per the chart. Apparently patient normally alert to self and place however was noted to be altered on 06/27 and therefore was sent emergency department. A CT brain was performed which showed cerebral atrophy, mild hydrocephalus, no acute intracranial abnormalities. Chest x-ray was performed which showed mild linear infiltrate and atelectasis at the lung bases, no heart failure. Blood work was performed which showed hemoglobin 14.4, white blood cell count 14.2, sodium 128, BUN 20, creatinine 0.79, venous lactic acid 2.2, AST 26, ALT 13, ammonia less than 9, LDH 620, troponin 0.184, 0.15, 0.159, CRP 21.3, albumin 2.8, urinalysis shows large blood, positive for urine nitrates, large leukocyte esterase, white blood cell greater than 182 and urine toxicology screen was unremarkable other than valproic acid. Patient is noted to have generalized anasarca with diffuse edema. Initially her heart rate was 123, respiratory rate 24, blood pressure 137/78 and 90% on 4 L nasal cannula. EKG was performed and shows sinus tachycardia, normal axis, minimal nonspecific ST depressions. 06/29 Patient seen and examined. Patient somewhat more alert however not answering questions appropriately. Patient smiling however and states she feels better than she did yesterday. ProBNP noted to be 4000s. She was started on Lasix 40 mg IV twice a day today PHYSICAL EXAMINATION Vital signs reviewed. CONSTITUTIONAL: No apparent distress, obese, generalized anasarca, pleasant and smiling however confused, not answering questions appropriately HEENT: Head is normocephalic. Pupils are equal, round. Sclerae anicteric. Mucous membranes of the mouth are moist. No JVD. No carotid bruit. CHEST EXAMINATION: Lungs are clear to auscultation. No chest wall tenderness is noted on palpation or with deep breathing. HEART EXAMINATION: Regular rate and rhythm. S1, S2 heard. No murmurs, gallops or rub. ABDOMEN: Soft, nontender. Positive bowel sounds. EXTREMITIES: 2+ peripheral pulses, +diffuse upper and lower extremity 2-3+ edema and no calf tenderness. NEUROLOGIC EXAMINATION: Patient is awake, alert ASSESSMENT 1. Elevated troponins of unclear significance, not complaining of any pain 2. Altered mental status 3. Baseline dementia 4. Generalized anasarca 5. Protein calorie malnutrition 6. Urinary tract infection 7. Hyponatremia 8. Decubitus ulcer 9. Mild lactic acidosis 10. Acute on chronic heart failure, unclear systolic versus diastolic PLAN Continue antibiotics for urinary tract infection. Patient's anasarca likely impacted by protein calorie malnutrition however BNP noted to be elevated and likely also a component of heart failure. Agree with trial of Lasix and monitor response. Check 2-D echo. Continue with aspirin. Monitor mental status. Further recommendations to follow. Objective - Vital Signs Vital signs: Vital Signs Temp 97.5 F L 06/29/20 16:27 Pulse 79 06/29/20 16:27 Resp 16 06/29/20 16:27 BP 154/83 06/29/20 16:27 Pulse Ox 100 06/29/20 16:27 Intake & Output 06/29/20 06/29/20 06/30/20 06:59 18:59 06:59 Intake Total 910 Output Total 120 60 Balance -120 850 Weight 135.6 kg Intake: Intake, IV Titration 50 Amount cefTRIAXone 1 gm In 50 Sodium Chloride 0.9% 50 ml @ 100 mls/hr [facility] Rx#:[id number] Oral 860 Output: Urine 120 60 Other: Voiding Method Indwelling Catheter Indwelling Catheter # Bowel Movements 0 - Labs CBC & Chem 7: 06/29/20 08:21 06/29/20 08:21 Labs: Abnormal Lab Results - Last 24 Hours (Table) 06/28/20 06/29/20 06/29/20 Range/Units 19:46 06:23 08:21 Lymphocytes # (1.0-4.8) k/uL Sodium 127 L (137-145) mmol/L Chloride 94 L (98-107) mmol/L BUN 20 H (7-17) mg/dL Glucose 174 H (74-99) mg/dL POC Glucose (mg/dL) 146 H 168 H (75-99) mg/dL HDL Cholesterol 35 L (40-60) mg/dL 06/29/20 06/29/20 06/29/20 Range/Units 08:21 11:43 16:44 Lymphocytes # 0.9 L (1.0-4.8) k/uL Sodium (137-145) mmol/L Chloride (98-107) mmol/L BUN (7-17) mg/dL Glucose (74-99) mg/dL POC Glucose (mg/dL) 138 H 120 H (75-99) mg/dL HDL Cholesterol (40-60) mg/dL Microbiology - Last 24 Hours (Table) 06/27/20 23:27 Urine Culture - Preliminary Urine,Voided Proteus spec 06/27/20 23:30 Blood Culture - Preliminary Blood No Growth after 24 hours 06/27/20 23:15 Blood Culture - Preliminary Blood No Growth after 24 hours
[2020-06-29 20:02] LABS: Glucose,Whole Blood 144 mg/dL (75-99)
[2020-06-29] MEDS: FUROSEMIDE 10 MG/ML 4 ML VIAL IV SCH (20:10)
--- NOTE | 2020-06-30 00:21 | P.PN ---
Subjective Progress Note Date: 06/29/20 Patient was seen for a follow-up by Tele-neurology. Patient's was present, who provided additional history. Patient at present denies any headache. No pain anywhere. Patient is slightly more alert and awake. According to patient's , patient has history of recurrent UTI for last 3 years. She has a very bad UTI in January 2020, which was medically intractable, and would recur on stopping the antibiotics. She has multiple hospitalizations. She has been going progressively downhill since then. She is either admitted to the hospital for acute infection, or she is in the rehab fac ility. Her has not been able to take care of his self because of severe disability therefore patient has been in the long-term care facility. Patient's has not been able to see her except when she gets hospitalized for any reason. In February 2020 she developed weakness of the hands, could not close her hands. Her mobility has decreased gradually since late November 2019. By January 2020, she could not stand for more than 30 seconds. Patient has not walked without a walker since last 1-1/2 years, in November 2019 she has not been able to walk to the bathroom. Subsequently she has required use of lift chair. She has not been able to sleep in the bed for years because of obesity. She has not been able to lift her arms since the January 2020. Patient has history of epilepsy since age 16. However it is in remission. The last seizure patient had was about 30 years ago which was a grand mal seizure. She was flopping like a fish. She has been on Depakote and has not had a seizure since then. Patient has type 2 diabetes for last 15 years. She was diagnosed with dementia in January 2020. Patient has bad arthritis in her legs. She has difficulty getting back into the car even before she wasn't disability. She has history of knee arthritis bursitis torn meniscus. Patient's states that patient always has been somewhat heavyset. The lymphedema started getting worse in the last 1 year, particularly has got worse since her hospitalizations in November 2019 on words. Patient has history of smoking 1 pack per day for 50 years, quit on 01/28/2020. No alcohol abuse. Patient's mother had dementia. Objective - Vital Signs Vital signs: Vital Signs Temp 97.5 F L 06/29/20 20:00 Pulse 83 06/29/20 20:00 Resp 18 06/29/20 20:00 BP 165/89 06/29/20 20:00 Pulse Ox 97 06/29/20 20:00 Intake & Output 06/29/20 06/29/20 06/30/20 06:59 18:59 06:59 Intake Total 910 Output Total 120 60 Balance -120 850 Weight 135.6 kg Intake: Intake, IV Titration 50 Amount cefTRIAXone 1 gm In 50 Sodium Chloride 0.9% 50 ml @ 100 mls/hr IVPB Q12HR [facility] Rx#:[id number] Oral 860 Output: Urine 120 60 Other: Voiding Method Indwelling Catheter Indwelling Catheter Indwelling Catheter # Bowel Movements 0 - Exam On examination patient is much more alert and awake. She thinks she is in [facility]. She could not tell the current month although states it is . She knows it is spring. Could not tell name of the current president. She lives in [facility]. Patient's speech is clear with no aphasia. She still has prolonged latency time to answer questions, but better than before. She still stares at the examiner. Her pupils are round and reacting. Extraocular muscles are intact. She can flex he r elbow about 40 on the right, 30 on the left. Her hands still tremors. Cannot squeeze, as she cannot correct her fingers around the examiner's fingers. She cannot move her legs/feet. Patient has lymphedema in the arms and legs. Pitting edema in the hands and feet. Patient has stage IV decubitus ulcers. - Labs CBC & Chem 7: 06/29/20 08:21 06/29/20 08:21 Labs: Abnormal Lab Results - Last 24 Hours (Table) 06/29/20 06/29/20 06/29/20 Range/Units 06:23 08:21 08:21 Lymphocytes # 0.9 L (1.0-4.8) k/uL Sodium 127 L (137-145) mmol/L Chloride 94 L (98-107) mmol/L BUN 20 H (7-17) mg/dL Glucose 174 H (74-99) mg/dL POC Glucose (mg/dL) 168 H (75-99) mg/dL HDL Cholesterol 35 L (40-60) mg/dL 06/29/20 06/29/20 06/29/20 Range/Units 11:43 16:44 20:00 Lymphocytes # (1.0-4.8) k/uL Sodium (137-145) mmol/L Chloride (98-107) mmol/L BUN (7-17) mg/dL Glucose (74-99) mg/dL POC Glucose (mg/dL) 138 H 120 H 144 H (75-99) mg/dL HDL Cholesterol (40-60) mg/dL Microbiology - Last 24 Hours (Table) 06/27/20 23:27 Urine Culture - Preliminary Urine,Voided Proteus spec 06/27/20 23:30 Blood Culture - Preliminary Blood No Growth after 24 hours 06/27/20 23:15 Blood Culture - Preliminary Blood No Growth after 24 hours Assessment and Plan Assessment: * Altered mental status, probably due to toxic metabolic encephalopathy. * Acute Proteus spec UTI * Hyponatremia * Probable dementia. * Elevated cardiac enzymes * Morbid obesity * Lymphedema * Chronic disability, progressive profound weakness, bedbound status. * Stage IV decubitus ulcer. * Tobacco use of 50 pack years, quit 01/28/2020. Plan: * Patient is being treated for UTI with Rocephin. * Treatment of hyponatremia as per IM. * Cardiology on board for elevated cardiac enzymes. * Patient had a normal ammonia, hemoglobin A1c 5.7. * B12 569, folate pending. * Patient's computed tomography scan of the head shows some degree of hydrocephalus. I do not believe patient is a candidate for ventriculoperitoneal shunting, based upon her degree of dementia and gait d ysfunction (bedbound status). May consider neurosurgery consult an outpatient. * Continue Depakote for seizure disorder, her levels are 42.5, which is acceptable. * Obtain records from [facility] and [facility]. Patient probably will need EMG and nerve conductions of upper and lower extremities to evaluate for peripheral neuropathy. May need MRI of the cervical and lumbar spines if not performed in the past. * Discussed with patient's in detail.
[2020-06-30 06:13] LABS: Glucose,Whole Blood 140 mg/dL (75-99)
[2020-06-30] MEDS: INSULIN ASPART (NovoLOG) 100 UNIT/ML VIAL SQ SCH ×4 (06:34→21:05)
[2020-06-30] MEDS: ASPIRIN 325 MG TAB PO SCH (08:22)
[2020-06-30] MEDS: ATORVASTATIN 80 MG TAB PO SCH (08:22)
[2020-06-30] MEDS: FUROSEMIDE 10 MG/ML 4 ML VIAL IV SCH ×2 (08:22→20:47)
[2020-06-30 11:01] LABS: Uric Acid 9.4 mg/dL (3.7-7.4)
--- NOTE | 2020-06-30 11:06 | ECHOF ---
Referral Reason:re: LV function MEASUREMENTS -------- HEIGHT: 170.2 cm WEIGHT: 137.0 kg BP: 115/40 RVIDd: 3.5 cm (< 3.3) IVSd: 1.6 cm (0.6 - 1.1) LVIDd: 3.6 cm (3.9 - 5.3) LVPWd: 1.6 cm (0.6 - 1.1) IVSs: 2.1 cm LVIDs: 2.4 cm LVPWs: 2.2 cm LAESV Index (A-L): 18.30 ml/m Ao Diam: 2.1 cm (2.0 - 3.7) AV Cusp: 1.3 cm (1.5 - 2.6) MV EXCURSION: 17.838 mm (> 18.000) MV EF SLOPE: 101 mm/s (70 - 150) EPSS: 0.4 cm MV E Rogelio: 1.05 m/s MV DecT: 80 ms MV A Rogelio: 1.30 m/s MV E/A Ratio: 0.81 RAP: 5.00 mmHg RVSP: 15.46 mmHg FINDINGS -------- Sinus rhythm. Resting tachycardia (HR>100bpm). This was a technically difficult study with suboptimal views. The left ventricular size is normal. There is moderate concentric left ventricular hypertrophy. O verall left ventricular systolic function is normal with, an EF between 55 - 60 %. The right ventricle is mildly enlarged. Normal LA size by volume 22+/-6 ml/m2. The right atrium was not well visualized. 5.0mg of Lumason was utilized for enhancement of images Interatrial and interventricular septum intact. There is mild aortic valve sclerosis. There is no evidence of aortic regurgitation. There is no e vidence of aortic stenosis. Mild mitral annular calcification present. There is trace to mild mitral regurgitation. Trace tricuspid regurgitation present. Right ventricular systolic pressure is normal at < 35 mmHg. The right ventricular systolic pressure, as measured by Doppler, is 15.46mmHg. The pulmonic valve was not well visualized. There is no pulmonic regurgitation present. The aortic root size is normal. IVC Not well visulized. There is no pericardial effusion. CONCLUSIONS -------- 1. This was a technically difficult study with suboptimal views. 2. There is moderate concentric left ventricular hypertrophy. 3. Overall left ventricular systolic function is normal with, an EF between 55 - 60 %. 4. The right ventricle is mildly enlarged. 5. Normal LA size by volume 22+/-6 ml/m2. 6. There is mild aortic valve sclerosis. 7. There is trace to mild mitral regurgitation. 8. Trace tricuspid regurgitation present. LABOR CONCILIATOR: Pepper Toribio RDCS
[2020-06-30 11:47] LABS: African American GFR (CKD) >90 (>60 ml/min/1.73 sqM); Anion Gap 11 mmol/L; Blood Urea Nitrogen 18 mg/dL (7-17); Calcium 8.8 mg/dL (8.4-10.2); Carbon Dioxide 25 mmol/L (22-30); Chloride 94 mmol/L (98-107); Glucose 151 mg/dL (74-99); Non-African American GFR(CKD) >90 (>60 ml/min/1.73 sqM); Sodium 130 mmol/L (137-145)
[2020-06-30 11:50] LABS: Magnesium 1.5 mg/dL (1.6-2.3); Potassium 3.4 mmol/L (3.5-5.1)
[2020-06-30 11:56] LABS: Glucose,Whole Blood 126 mg/dL (75-99)
[2020-06-30] MEDS ORDERED: POTASSIUM CHLORIDE ER 20 MEQ TAB.ER PO STA (12:31)
--- NOTE | 2020-06-30 12:39 | P.NPCON ---
History of Present Illness - Reason for Consult hyponatremia - History of Present Illness Reason for consultation: Hyponatremia History of present illness: Patient is a 65-year-old female seen in consultation for hyponatremia. Patient presented to the hospital on 06/27/2020 with altered mental status. She was prone to be less responsive and was brought to the hospital by the EMS. Her sodium level on admission was 128 and is down to 127 yesterday. It is up to 130 today. She is currently maintained on IV Lasix 40 mg twice daily. Nonoliguric. Has a Nunez catheter. Echocardiogram revealed preserved ejection fraction. Blood pressure stable. Afebrile. Tested negative for coronavirus. Currently on 97% room air. No vomiting or diarrhea. She does have history of diabetes mellitus. I don't see any nonsteroidals and her home medications. Patient is not a very reliable historian. Vital signs are stable. General: The patient appeared well nourished and normally developed. HEENT: Head exam is unremarkable. LUNGS: Breath sounds decreased. HEART: Rate and Rhythm are regular. ABDOMEN: Soft, nontender. EXTREMITITES: Trace edema. Past Medical History Past Medical History: Atrial Fibrillation, Diabetes Mellitus, Seizure Disorder Additional Past Medical History / Comment(s): hypomagnesemia, Hypokalemia, Lymphedema, pressure ulcer stage 4 on buttocks, pulmonary fibrosis, encephalopathy, congnitive deficits, chronic IDC with UTI History of Any Multi-Drug Resistant Organisms: Unobtainable Past Surgical History: Unable to Obtain Past Psychological History: Unable to Obtain Smoking Status: Unknown if ever smoked Past Alcohol Use History: Unable to Obtain Past Drug Use History: Unable to Obtain Medications and Allergies Home Medications Medication Instructions Recorded Confirmed Type Acetaminophen Tab [Tylenol] 650 mg PO Q6H PRN 06/28/20 06/28/20 History Amiodarone [Cordarone] 200 mg PO BID@0800,199906/28/20 06/28/20 History Apixaban [Eliquis] 2.5 mg PO BID@0800,199906/28/20 06/28/20 History Divalproex [Depakote] 250 mg PO TID@0600,1400,2200 06/28/20 06/28/20 History Ergocalciferol (Vitamin D2) 50 mcg PO DAILY@0800 06/28/20 06/28/20 History [Vitamin D2 (2000 Iu)] Furosemide [Lasix] 40 mg PO DAILY@0800 06/28/20 06/28/20 History INSULIN ASPART (NovoLOG) [NovoLOG See Protocol SQ ACHS 06/28/20 06/28/20 History (formulary)] Levothyroxine Sodium [Synthroid] 50 mcg PO DAILY@0800 06/28/20 06/28/20 History Loperamide [Imodium] 2 mg PO Q6H PRN 06/28/20 06/28/20 History Magnesium Oxide [Mag-Ox] 400 mg PO DAILY@0806/28/20 06/28/20 History Menthol-Zinc Oxide Oint 1 applic TOPICAL BID@799,199906/28/20 06/28/20 History [Calmoseptine Oint] Metoprolol Tartrate [Lopressor] 50 mg PO BID@08,199906/28/20 06/28/20 History Multivitamins, Thera [Multivitamin 1 tab PO DAILY@0806/28/20 06/28/20 History (formulary)] Nystatin 100,000 Unit/gm Powd 1 applic TOPICAL BID 06/28/20 06/28/20 History [Mycostatin Powder] Potassium Chloride ER [K-Dur 20] 20 meq PO DAILY@0806/28/20 06/28/20 History Prostat 30 ml PO BID 06/28/20 06/28/20 History S.boulardii/B.coagulans/Fos 471 mg PO DAILY@0800 06/28/20 06/28/20 History [Diff-Stat 471 mg Capsule] Zinc Oxide [Cozima] 1 applic TOPICAL HS@199906/28/20 06/28/20 History Allergies Allergy/AdvReac Type Severity Reaction Status Date / Time codeine Allergy Rash/Hives Verified 06/28/20 09:05 Milk Containing Products Allergy Unknown Verified 06/28/20 09:05 Physical Exam Vitals: Vital Signs Temp Pulse Resp BP Pulse Ox 06/30/20 08:20 98.8 F 113 H 18 141/79 97 06/30/20 08:00 113 H 18 06/30/20 04:00 98.0 F 119 H 18 115/40 97 06/30/20 02:00 120 H 17 06/30/20 00:00 97.7 F 120 H 17 156/88 96 06/29/20 20:00 97.5 F L 83 18 165/89 97 06/29/20 16:27 97.5 F L 79 16 154/83 100 Intake and Output 06/29/20 06/30/20 06/30/20 22:59 06:59 14:59 Intake Total 240 240 Output Total 60 1000 Balance 180 -1000 240 Intake: Oral 240 240 Output: Urine 60 1000 Other: Voiding Method Indwelling Catheter Indwelling Catheter Indwelling Catheter # Bowel Movements 0 Weight 137.07 kg Results - Lab Results Most recent lab results Calcium 8.8 mg/dL (8.4-10.2) 06/30/20 10:02 Magnesium 1.5 mg/dL (1.6-2.3) L 06/30/20 10:02 06/29/20 08:21 06/30/20 10:02 Assessment and Plan Plan: Assessment: 1. Hypervolemic hyponatremia. Improving with diuresis. Urine osmolality 416 and urine sodium 11. TSH 4.9. 2. Hypokalemia from diuresis. 3. Hypomagnesemia from diuresis. 4. Diabetes mellitus. 5. Acute on chronic diastolic CHF. 6. UTI with urine culture positive for Proteus maintained on antibiotics. 7. Altered mental status. Neurology following. Plan: Maintain IV Lasix. 1500 mL fluid restriction. Replace potassium and magnesium. Avoid nephrotoxins. Continue to monitor renal function and urine output. Thank you for the consultation. I will continue to follow the patient with you during her hospital stay.
[2020-06-30] MEDS: MAGNESIUM SULFATE-D5W PMX 1 GM in DEXTROSE/WATER 1 100ML.BAG IVPB SCH ×2 (12:48→17:39)
--- NOTE | 2020-06-30 12:49 | P.CONS ---
History of Present Illness - Reason for Consult Consult date: 06/30/20 wound care - History of Present Illness This is a 65-year-old patient being seen by the wound care center on 3 for nonhealing ulcerations to the medial back, right buttocks, right posterior thigh, and left heel. Medial back right buttocks and right posterior thigh are stage II pressure ulcers with fatty layer exposure granulation seen throughout the wound bed with minimal slough. Wound edges are attached to the wound base no tunneling or undermining noted. Left calcaneus is a stage II pressure ulcer with fatty layer exposure no tunneling or undermining noted granulation seen within the wound bed. Patient is poor historian. Unable to answer questions at times. She is a resident at [facility] Patient's past medical history significant for atrial fibrillation, diabetes, chronic nonh ealing pressure ulcers. Review of systems: Unable to obtain due to patient's mental status Review Of Systems: Constitutional: No fever, no chills, no night sweats. No weight change. No weakness, fatigue or lethargy. No daytime sleepiness. Integumentary:reports wounds, no lesions. No rash or pruritus. No unusual bruising. No change in hair or nails. Assessment: 1. Stage II pressure ulcer right buttocks with fat layer exposure 2. Stage II pressure ulcer right posterior thigh with fat layer exposure 3. Medial back pressure ulcer stage II with fat layer exposure 4. Pressure ulcer left calcaneus stage II with fat layer exposure 5. Diabetes was skin ulcer 6. Diabetic foot ulcer Plan: 1. Apply collagen to all ulcerations, saline moist gauze, dry gauze and secure with border foam. Change Tuesday. Turn patient every 2 hours. Utilize specialty mattress. Utilize foam heel protectors. Thank you for the consultation any questions please contact the wound care c enter DNP note has been reviewed and discussed with Dr. Fried and the impression and plan of care has been directed as dictated. Past Medical History Past Medical History: Atrial Fibrillation, Diabetes Mellitus, Seizure Disorder Additional Past Medical History / Comment(s): hypomagnesemia, Hypokalemia, Lymphedema, pressure ulcer stage 4 on buttocks, pulmonary fibrosis, encephalopathy, congnitive deficits, chronic IDC with UTI History of Any Multi-Drug Resistant Organisms: Unobtainable Past Surgical History: Unable to Obtain Past Psychological History: Unable to Obtain Smoking Status: Unknown if ever smoked Past Alcohol Use History: Unable to Obtain Past Drug Use History: Unable to Obtain Medications and Allergies Home Medications Medication Instructions Recorded Confirmed Type Acetaminophen Tab [Tylenol] 650 mg PO Q6H PRN 06/28/20 06/28/20 History Amiodarone [Cordarone] 200 mg PO BID@0800,199906/28/20 06/28/20 History Apixaban [Eliquis] 2.5 mg PO BID@0800,199906/28/20 06/28/20 History Divalproex [Depakote] 250 mg PO TID@0600,1400,2200 06/28/20 06/28/20 History Ergocalciferol (Vitamin D2) 50 mcg PO DAILY@0800 06/28/20 06/28/20 History [Vitamin D2 (2000 Iu)] Furosemide [Lasix] 40 mg PO DAILY@0800 06/28/20 06/28/20 History INSULIN ASPART (NovoLOG) [NovoLOG See Protocol SQ ACHS 06/28/20 06/28/20 History (formulary)] Levothyroxine Sodium [Synthroid] 50 mcg PO DAILY@0800 06/28/20 06/28/20 History Loperamide [Imodium] 2 mg PO Q6H PRN 06/28/20 06/28/20 History Magnesium Oxide [Mag-Ox] 400 mg PO DAILY@0800 06/28/20 06/28/20 History Menthol-Zinc Oxide Oint 1 applic TOPICAL BID@08,199906/28/20 06/28/20 History [Calmoseptine Oint] Metoprolol Tartrate [Lopressor] 50 mg PO BID@0800,199906/28/20 06/28/20 History Multivitamins, Thera [Multivitamin 1 tab PO DAILY@0806/28/20 06/28/20 History (formulary)] Nystatin 100,000 Unit/gm Powd 1 applic TOPICAL BID 06/28/20 06/28/20 History [Mycostatin Powder] Potassium Chloride ER [K-Dur 20] 20 meq PO DAILY@0800 06/28/20 06/28/20 History Prostat 30 ml PO BID 06/28/20 06/28/20 History S.boulardii/B.coagulans/Fos 471 mg PO DAILY@0800 06/28/20 06/28/20 History [Diff-Stat 471 mg Capsule] Zinc Oxide [Cozima] 1 applic TOPICAL HS@199906/28/20 06/28/20 History Allergies Allergy/AdvReac Type Severity Reaction Status Date / Time codeine Allergy Rash/Hives Verified 06/28/20 09:05 Milk Containing Products Allergy Unknown Verified 06/28/20 09:05 Physical Exam Vitals: Vital Signs Temp Pulse Resp BP Pulse Ox 06/30/20 08:20 98.8 F 113 H 18 141/79 97 06/30/20 08:00 113 H 18 06/30/20 04:00 98.0 F 119 H 18 115/40 97 06/30/20 02:00 120 H 17 06/30/20 00:00 97.7 F 120 H 17 156/88 96 06/29/20 20:00 97.5 F L 83 18 165/89 97 06/29/20 16:27 97.5 F L 79 16 154/83 100 Intake and Output 06/29/20 06/30/20 06/30/20 22:59 06:59 14:59 Intake Total 240 240 Output Total 60 1000 Balance 180 -1000 240 Intake: Oral 240 240 Output: Urine 60 1000 Other: Voiding Method Indwelling Catheter Indwelling Catheter Indwelling Catheter # Bowel Movements 0 Weight 137.07 kg 137.07 kg Results CBC & Chem 7: 06/29/20 08:21 06/30/20 10:02 Labs: Abnormal Lab Results - Last 24 Hours (Table) 06/29/20 06/29/20 06/30/20 Range/Units 16:44 20:00 06:12 Sodium (137-145) mmol/L Potassium (3.5-5.1) mmol/L Chloride (98-107) mmol/L BUN (7-17) mg/dL Glucose (74-99) mg/dL POC Glucose (mg/dL) 120 H 144 H 140 H (75-99) mg/dL Uric Acid (3.7-7.4) mg/dL Magnesium (1.6-2.3) mg/dL TSH (0.465-4.680) mIU/L 06/30/20 06/30/20 06/30/20 Range/Units 10:02 10:02 11:37 Sodium 130 L (137-145) mmol/L Potassium 3.4 L (3.5-5.1) mmol/L Chloride 94 L (98-107) mmol/L BUN 18 H (7-17) mg/dL Glucose 151 H (74-99) mg/dL POC Glucose (mg/dL) 126 H (75-99) mg/dL Uric Acid 9.4 H (3.7-7.4) mg/dL Magnesium 1.5 L (1.6-2.3) mg/dL TSH 4.900 H (0.465-4.680) mIU/L Microbiology - Last 24 Hours (Table) 06/27/20 23:30 Blood Culture - Preliminary Blood No Growth after 48 hours 06/27/20 23:15 Blood Culture - Preliminary Blood No Growth after 48 hours 06/27/20 23:27 Urine Culture - Preliminary Urine,Voided Proteus spec Assessment and Plan (1) Pressure ulcer of left heel, stage 2 Current Visit: Yes Status: Acute Code(s): L89.622 - PRESSURE ULCER OF LEFT HEEL, STAGE 2 SNOMED Code(s): 908288405 (2) Pressure ulcer of right lower back, stage 2 Current Visit: Yes Status: Acute Code(s): L89.132 - PRESSURE ULCER OF RIGHT LOWER BACK, STAGE 2 SNOMED Code(s): 457032345 (3) Pressure ulcer of right buttock, stage 2 Current Visit: Yes Status: Acute Code(s): L89.312 - PRESSURE ULCER OF RIGHT BUTTOCK, STAGE 2 SNOMED Code(s): 55052443040669987 (4) Pressure ulcer of right leg, stage 2 Current Visit: Yes Status: Acute Code(s): L89.892 - PRESSURE ULCER OF OTHER SITE, STAGE 2 SNOMED Code(s): 342561589 (5) Diabetes with skin ulcer Current Visit: Yes Status: Acute Code(s): E11.622 - TYPE 2 DIABETES MELLITUS WITH OTHER SKIN ULCER; L98.499 - NON-PRESSURE CHRONIC ULCER OF SKIN OF SITES W UNSP SEVERITY SNOMED Code(s): 96934158
[2020-06-30] MEDS: METOPROLOL TARTRATE 50 MG TAB PO SCH ×2 (13:28→20:47)
--- NOTE | 2020-06-30 16:11 | P.PN ---
Subjective Progress Note Date: 06/30/20 Patient has no new complaints today. Resting in bed comfortably. Does not appear to be significantly confused at this time. Objective - Vital Signs Vital signs: Vital Signs Temp 97.9 F 06/30/20 12:45 Pulse 121 H 06/30/20 12:45 Resp 16 06/30/20 13:31 BP 161/85 06/30/20 12:45 Pulse Ox 96 06/30/20 12:45 Intake & Output 06/29/20 06/30/20 06/30/20 18:59 06:59 18:59 Intake Total 910 720 Output Total 60 1000 Balance 850 -1000 720 Weight 137.07 kg 137.07 kg Intake: Intake, IV Titration 50 Amount cefTRIAXone 1 gm In 50 Sodium Chloride 0.9% 50 ml @ 100 mls/hr IVPB Q12HR [facility] Rx#:[id number] Oral 860 720 Output: Urine 60 1000 Other: Voiding Method Indwelling Catheter Indwelling Catheter Indwelling Catheter # Bowel Movements 0 - Exam Gen: awake, alert HEENT: normocephalic, atraumatic, good hearing acuity, moist mucous membranes Resp: good air exchange, breathing comfortably with no accessory muscle use CVS: good distal perfusion x 4, GI: soft, NTTP, ND : no SPT, no CVAT, hernandez catheter is present MSK: no pitting edema, no clubbing Neuro: non-focal, moving all extremities Psych: cooperative, euthymic mood - Labs CBC & Chem 7: 06/29/20 08:21 06/30/20 10:02 Labs: Abnormal Lab Results - Last 24 Hours (Table) 06/29/20 06/29/20 06/30/20 Range/Units 16:44 20:00 06:12 Sodium (137-145) mmol/L Potassium (3.5-5.1) mmol/L Chloride (98-107) mmol/L BUN (7-17) mg/dL Glucose (74-99) mg/dL POC Glucose (mg/dL) 120 H 144 H 140 H (75-99) mg/dL Uric Acid (3.7-7.4) mg/dL Magnesium (1.6-2.3) mg/dL TSH (0.465-4.680) mIU/L 06/30/20 06/30/20 06/30/20 Range/Units 10:02 10:02 11:37 Sodium 130 L (137-145) mmol/L Potassium 3.4 L (3.5-5.1) mmol/L Chloride 94 L (98-107) mmol/L BUN 18 H (7-17) mg/dL Glucose 151 H (74-99) mg/dL POC Glucose (mg/dL) 126 H (75-99) mg/dL Uric Acid 9.4 H (3.7-7.4) mg/dL Magnesium 1.5 L (1.6-2.3) mg/dL TSH 4.900 H (0.465-4.680) mIU/L Microbiology - Last 24 Hours (Table) 06/27/20 23:30 Blood Culture - Preliminary Blood No Growth after 48 hours 06/27/20 23:15 Blood Culture - Preliminary Blood No Growth after 48 hours Assessment and Plan Assessment: Metabolic encephalopathy due to UTI -Continue with the home Depakote dose -Neurology following -Continue ceftriaxone, cultures growing proteus. Follow sensitivities. Troponin elevation, likely sec to acute illness/UTI -Patient currently on Eliquis for A. fib -Continue with aspirin -Cardiology recommending echo = normal ejection fraction, no diastolic dysfunction, mildly elevated right ventricle, normal estimated RVSP -Cardiac monitoring Hyponatremia/anasarca -Likely hypervolemic sec to third spacing, low albumin. -Consult nephrology, appreciate recs -Started lasix. Improving with diuretics. Lactic acidosis -Resolved. L buttock unstageable ulcer -Wound care consult. Seems likely that patient has a hernandez sec to this, will change catheter today. D/w nurse Chronic conditions: Type II DM, A. fib -Continue home meds -Lispro sliding scale -A1C ok General weakness PT and OT DVT prophylaxis -Eliquis CODE STATUS: Full Code Discussed with: Patient, RN Anticipated discharge date: 2-[address]: [facility]
[2020-06-30 17:01] LABS: Glucose,Whole Blood 120 mg/dL (75-99)
--- NOTE | 2020-06-30 18:27 | P.PN ---
Subjective Progress Note Date: 06/30/20 This is a 65-year-old female with history of dementia, A. fib, seizure disorder, diabetes mellitus, and also decubitus ulcers who was admitted to the hospital with altered mental status. CT of the brain showed cerebral atrophy and mild hydrocephalus. Chest. Echo showed mild infiltrates. Patient has generalized anasarca of the diffuse edema. Patient also some nonhealing ulcers. EKG showed sinus tachycardia. Patient also had mildly elevated troponins which were felt to be nonspecific. Patient is felt to have 14-calorie malnutrition. Echo Cardigan showed normal LV function without any significant valvular abnormalities. Continue with current medical therapy. She is on IV Lasix 40 mg every 12 hours along with beta greg and aspirin. We'll follow her as needed. Objective - Vital Signs Vital signs: Vital Signs Temp 97.5 F L 06/30/20 16:45 Pulse 70 06/30/20 16:45 Resp 18 06/30/20 16:45 BP 146/70 06/30/20 16:45 Pulse Ox 97 06/30/20 16:45 Intake & Output 06/29/20 06/30/20 06/30/20 18:59 06:59 18:59 Intake Total 910 720 Output Total 60 1000 Balance 850 -1000 720 Weight 137.07 kg 137.07 kg Intake: Intake, IV Titration 50 Amount cefTRIAXone 1 gm In 50 Sodium Chloride 0.9% 50 ml @ 100 mls/hr IVPB Q12HR [facility] Rx#:[id number] Oral 860 720 Output: Urine 60 1000 Other: Voiding Method Indwelling Catheter Indwelling Catheter Indwelling Catheter # Bowel Movements 0 - Exam GENERAL EXAM: Patient is awake and doesn't appear to be in acute distress. HEENT: Normocephalic. Normal reaction of pupils, equal size, normal range of extraocular motion. No erythema or exudates in the throat. NECK: No masses, no nuchal rigidity. CHEST: No chest wall deformity. LUNGS: Breath sounds HEART: S1 and S2 normal . Distant heart sounds ABDOMEN: No hepatosplenomegaly, normal bowel sounds, no guarding or rigidity. SKIN: No rashes CENTRAL NERVOUS SYSTEM: No focal deficits. EXTREMITIES: Generalized anasarca - Labs CBC & Chem 7: 06/29/20 08:21 06/30/20 10:02 Labs: Abnormal Lab Results - Last 24 Hours (Table) 06/29/20 06/30/20 06/30/20 Range/Units 20:00 06:12 10:02 Sodium (137-145) mmol/L Potassium (3.5-5.1) mmol/L Chloride (98-107) mmol/L BUN (7-17) mg/dL Glucose (74-99) mg/dL POC Glucose (mg/dL) 144 H 140 H (75-99) mg/dL Uric Acid 9.4 H (3.7-7.4) mg/dL Magnesium (1.6-2.3) mg/dL TSH 4.900 H (0.465-4.680) mIU/L 06/30/20 06/30/20 06/30/20 Range/Units 10:02 11:37 16:52 Sodium 130 L (137-145) mmol/L Potassium 3.4 L (3.5-5.1) mmol/L Chloride 94 L (98-107) mmol/L BUN 18 H (7-17) mg/dL Glucose 151 H (74-99) mg/dL POC Glucose (mg/dL) 126 H 120 H (75-99) mg/dL Uric Acid (3.7-7.4) mg/dL Magnesium 1.5 L (1.6-2.3) mg/dL TSH (0.465-4.680) mIU/L Microbiology - Last 24 Hours (Table) 06/27/20 23:30 Blood Culture - Preliminary Blood No Growth after 48 hours 06/27/20 23:15 Blood Culture - Preliminary Blood No Growth after 48 hours Assessment and Plan (1) Troponin level elevated Current Visit: Yes Status: Acute Code(s): R77.8 - OTHER SPECIFIED ABNORMALITIES OF PLASMA PROTEINS SNOMED Code(s): 239640574 (2) Altered mental status Current Visit: Yes Status: Acute Code(s): R41.82 - ALTERED MENTAL STATUS, UNSPECIFIED SNOMED Code(s): 202905121 (3) Anasarca Current Visit: Yes Status: Acute Code(s): R60.1 - GENERALIZED EDEMA SNOMED Code(s): 736635122 (4) Hyponatremia Current Visit: Yes Status: Acute Code(s): E87.1 - HYPO-OSMOLALITY AND HYPONATREMIA SNOMED Code(s): 98502000 Plan: Continue current medical therapy. Echo showed normal LV function. We will follow as needed
[2020-06-30 20:29] LABS: Glucose,Whole Blood 129 mg/dL (75-99)
--- NOTE | 2020-07-01 01:45 | P.PN ---
Subjective Progress Note Date: 06/30/20 06/30/2020: Patient was seen for a follow-up. Patient is laying comfortably in the bed, much more alert awake interactive, less starry eyed, less encephalopathic. Denies headache. Denies problem with the vision. 06/29/2020: Patient was seen for a follow-up by Tele-neurology. Patient's was present, who provided additional history. Patient at present denies any headache. No pain anywhere. Patient is slightly more alert and awake. According to patient's , patient has history of recurrent UTI for last 3 years. She has a very bad UTI in January 2020, which was medically intracta ble, and would recur on stopping the antibiotics. She has multiple hospitalizations. She has been going progressively downhill since then. She is either admitted to the hospital for acute infection, or she is in the rehab facility. Her has not been able to take care of his self because of severe disability therefore patient has been in the long-term care facility. Patient's has not been able to see her except when she gets hospitalized for any reason. In February 2020 she developed weakness of the hands, could not close her hands. Her mobility has decreased gradually since late November 2019. By January 2020, she could not stand for more than 30 seconds. Patient has not walked without a walker since last 1-1/2 years, in November 2019 she has not been able to walk to the bathroom. Subsequently she has required use of lift chair. She has not been able to sleep in the bed for years because of obesity. She has not been able to lift her arms since the January 2020. Patient has history of epilepsy since age 16. However it is in remission. The last seizure patient had was about 30 years ago which was a grand mal seizure. She was flopping like a fish. She has been on Depakote and has not had a seizure since then. Patient has type 2 diabetes for last 15 years. She was diagnosed with dementia in January 2020. Patient has bad arthritis in her legs. She has difficulty getting back into the car even before she wasn't disability. She has history of knee arthritis bursitis torn meniscus. Patient's states that patient always has been somewhat heavyset. The lymphedema started getting worse in the last 1 year, particularly has got worse since her hospitalizations in November 2019 on words. Patient has history of smoking 1 pack per day for 50 years, quit on 01/28/2020. No alcohol abuse. Patient's mother had dementia. Objective - Vital Signs Vital signs: Vital Signs Temp 97.7 F 06/30/20 23:34 Pulse 57 L 06/30/20 23:34 Resp 16 06/30/20 23:34 BP 142/69 06/30/20 23:34 Pulse Ox 95 06/30/20 23:34 Intake & Output 06/30/20 06/30/20 07/01/20 06:59 18:59 06:59 Intake Total 1085 Output Total 1000 1880 Balance -1000 1085 -1880 Weight 137.07 kg 137.07 kg Intake: Oral 1085 Output: Urine 1000 1880 Other: Voiding Method Indwelling Catheter Indwelling Catheter Indwelling Catheter - Exam On examination patient is much more alert and awake. Patient knows her home town couple but could not tell the current month or year. Speech and language functions are normal. Her latency time to answer questions have improved. On cranial nerve examination pupils are round and reacting, visual mack are full, extraocular muscles are intact and face is symmetric and tongue protrudes the midline. On muscle strength testing biceps are 4, triceps 4, feeder operator automatic 3. Tone is increased bilaterally at least moderately. Patient's hand shakes whenever she lifts her hands off the bed. Patient able to flex her right arm at the elbow about 20 above the bed and left arm 60 above the bed. Her lymphedema and generalized edema also unimproved. Reflexes are (right/left) biceps 1/2, brachioradialis 1/1, ankles 0/0, knees 0/0. She cannot move her legs/feet. Patient has lymphedema in the arms and legs. Pitting edema in the hands and feet. Patient has stage IV decubitus ulcers per nurse report. - Labs CBC & Chem 7: 06/29/20 08:21 06/30/20 10:02 Labs: Abnormal Lab Results - Last 24 Hours (Table) 06/30/20 06/30/20 06/30/20 Range/Units 06:12 10:02 10:02 Sodium 130 L (137-145) mmol/L Potassium 3.4 L (3.5-5.1) mmol/L Chloride 94 L (98-107) mmol/L BUN 18 H (7-17) mg/dL Glucose 151 H (74-99) mg/dL POC Glucose (mg/dL) 140 H (75-99) mg/dL Uric Acid 9.4 H (3.7-7.4) mg/dL Magnesium 1.5 L (1.6-2.3) mg/dL TSH 4.900 H (0.465-4.680) mIU/L 06/30/20 06/30/20 06/30/20 Range/Units 11:37 16:52 20:28 Sodium (137-145) mmol/L Potassium (3.5-5.1) mmol/L Chloride (98-107) mmol/L BUN (7-17) mg/dL Glucose (74-99) mg/dL POC Glucose (mg/dL) 126 H 120 H 129 H (75-99) mg/dL Uric Acid (3.7-7.4) mg/dL Magnesium (1.6-2.3) mg/dL TSH (0.465-4.680) mIU/L Microbiology - Last 24 Hours (Table) 06/27/20 23:30 Blood Culture - Preliminary Blood No Growth after 48 hours 06/27/20 23:15 Blood Culture - Preliminary Blood No Growth after 48 hours Assessment and Plan Assessment: * Altered mental status, probably due to toxic metabolic encephalopathy. * Acute Proteus spec UTI * Hyponatremia * Probable dementia. * Elevated cardiac enzymes * Morbid obesity * Lymphedema * Chronic disability, progressive profound weakness, bedbound status. * Stage IV decubitus ulcer. * Tobacco use of 50 pack years, quit 01/28/2020. Plan: * Patient is being treated for UTI with Rocephin. * Treatment of hyponatremia as per IM. * Cardiology on board for elevated cardiac enzymes. * Patient had a normal ammonia, hemoglobin A1c 5.7. * B12 569, folate 10.0. * Patient's computed tomography scan of the head shows some degree of hydrocephalus. I do not believe patient is a candidate for ventriculoperit pruett shunting, based upon her degree of dementia and gait dysfunction (bedbound status). May consider neurosurgery consult an outpatient. * Continue Depakote for seizure disorder, her levels are 42.5, which is acceptable. * Obtained records from [facility] and [facility]. Only single paper arrived, which was computed tomography scan of the head. Nothing else. * We will check MRI of the cervical and lumbar spine. * Patient probably will need EMG and nerve conductions of upper and lower extremities to evaluate for peripheral neuropathy. * Dr. Benjie Pickens Will resume neurology service from morning.
[2020-07-01] MEDS: INSULIN ASPART (NovoLOG) 100 UNIT/ML VIAL SQ SCH ×4 (06:32→21:30)
[2020-07-01 08:18] LABS: Glucose,Whole Blood 141 mg/dL (75-99)
[2020-07-01] MEDS: FUROSEMIDE 10 MG/ML 4 ML VIAL IV SCH ×2 (09:14→20:31)
[2020-07-01] MEDS: METOPROLOL TARTRATE 50 MG TAB PO SCH ×2 (09:14→23:08)
[2020-07-01] MEDS: ASPIRIN 325 MG TAB PO SCH (09:14)
[2020-07-01] MEDS: ATORVASTATIN 80 MG TAB PO SCH (09:15)
[2020-07-01 09:55] LABS: African American GFR (CKD) >90 (>60 ml/min/1.73 sqM); Anion Gap 8 mmol/L; Blood Urea Nitrogen 20 mg/dL (7-17); Calcium 8.9 mg/dL (8.4-10.2); Carbon Dioxide 27 mmol/L (22-30); Chloride 97 mmol/L (98-107); Glucose 126 mg/dL (74-99); Magnesium 1.9 mg/dL (1.6-2.3); Non-African American GFR(CKD) >90 (>60 ml/min/1.73 sqM); Sodium 132 mmol/L (137-145)
[2020-07-01 10:18] LABS: Potassium 4.1 mmol/L (3.5-5.1)
--- NOTE | 2020-07-01 11:27 | P.PN ---
Subjective Patient is seen in follow-up for hyponatremia. Sodium level improving. Maintain on IV Lasix. Good urine output. No chest pain or shortness of breath. Vital signs are stable. General: The patient appeared well nourished and normally developed. HEENT: Head exam is unremarkable. Neck is without jugular venous distension. LUNGS: Breath sounds decreased. HEART: Rate and Rhythm are regular. ABDOMEN: Soft, obese. EXTREMITITES: Trace edema. Objective - Vital Signs Vital signs: Vital Signs Temp 98.9 F 07/01/20 09:10 Pulse 62 07/01/20 09:10 Resp 18 07/01/20 09:10 BP 135/76 07/01/20 09:10 Pulse Ox 95 07/01/20 09:10 Intake & Output 06/30/20 07/01/20 07/01/20 18:59 06:59 18:59 Intake Total 1085 480 Output Total 1880 Balance 1085 -1880 480 Weight 137.07 kg 139.8 kg Intake: Oral 1085 480 Output: Urine 1880 Other: Voiding Method Indwelling Catheter Indwelling Catheter Indwelling Catheter - Labs CBC & Chem 7: 06/29/20 08:21 07/01/20 08:17 Labs: Abnormal Lab Results - Last 24 Hours (Table) 06/30/20 06/30/20 06/30/20 Range/Units 10:02 10:02 11:37 Sodium 130 L (137-145) mmol/L Potassium 3.4 L (3.5-5.1) mmol/L Chloride 94 L (98-107) mmol/L BUN 18 H (7-17) mg/dL Glucose 151 H (74-99) mg/dL POC Glucose (mg/dL) 126 H (75-99) mg/dL Magnesium 1.5 L (1.6-2.3) mg/dL TSH 4.900 H (0.465-4.680) mIU/L 06/30/20 06/30/20 07/01/20 Range/Units 16:52 20:28 06:14 Sodium (137-145) mmol/L Potassium (3.5-5.1) mmol/L Chloride (98-107) mmol/L BUN (7-17) mg/dL Glucose (74-99) mg/dL POC Glucose (mg/dL) 120 H 129 H 141 H (75-99) mg/dL Magnesium (1.6-2.3) mg/dL TSH (0.465-4.680) mIU/L 07/01/20 Range/Units 08:17 Sodium 132 L (137-145) mmol/L Potassium (3.5-5.1) mmol/L Chloride 97 L (98-107) mmol/L BUN 20 H (7-17) mg/dL Glucose 126 H (74-99) mg/dL POC Glucose (mg/dL) (75-99) mg/dL Magnesium (1.6-2.3) mg/dL TSH (0.465-4.680) mIU/L Microbiology - Last 24 Hours (Table) 06/27/20 23:27 Urine Culture - Preliminary Urine,Voided Proteus mirabilis Gram Neg Bacilli 06/27/20 23:30 Blood Culture - Preliminary Blood No Growth after 72 hours 06/27/20 23:15 Blood Culture - Preliminary Blood No Growth after 72 hours Assessment and Plan Plan: Assessment: 1. Hypervolemic hyponatremia. Improving with diuresis. Urine osmolality 416 and urine sodium 11. TSH 4.9. 2. Hypokalemia from diuresis. Replaced. Better. 3. Hypomagnesemia from diuresis. Replaced. Better. 4. Diabetes mellitus. 5. Acute on chronic diastolic CHF. 6. UTI with urine culture positive for Proteus maintained on antibiotics. 7. Altered mental status. Neurology following. Plan: Maintain IV Lasix. 1500 mL fluid restriction. Avoid nephrotoxins. Continue to monitor renal function and urine output. Check chest x-ray tomorrow morning.
[2020-07-01 12:01] LABS: Basophils # (A) 0.1 k/uL (0-0.2); Basophils % (A) 1 %; Eosinophils # (A) 0.1 k/uL (0-0.7); Eosinophils % (A) 1 %; HCT 41.3 % (34.0-46.0); HGB 13.4 gm/dL (11.4-16.0); Lymphocytes # (A) 0.9 k/uL (1.0-4.8); Lymphocytes % (A) 15 %; MCH 31.3 pg (25.0-35.0); MCHC 32.4 g/dL (31.0-37.0); MCV 96.6 fL (80.0-100.0); Monocytes # (A) 0.7 k/uL (0-1.0); Monocytes % (A) 12 %; Neutrophils # (A) 4.1 k/uL (1.3-7.7); Neutrophils % (A) 69 %; Platelet Count 361 k/uL (150-450); RBC 4.27 m/uL (3.80-5.40); RDW 14.3 % (11.5-15.5); WBC 5.9 k/uL (3.8-10.6)
[2020-07-01 12:07] LABS: Glucose,Whole Blood 123 mg/dL (75-99)
--- NOTE | 2020-07-01 13:09 | CDI ---
Documentation Clarification Form Date: 07/01/2020 12:41:29 PM From: Minnie Walter RN CCDS Admit Date: 06/28/2020 12:44:00 AM Patient Name: Sandy Mcneil Visit Number: [id number] Discharge Date: ATTENTION: The Clinical Documentation Specialists (CDI) and [facility] Coding Staff appreciate your assistance in clarifying documentation. Please respond to the clarification below the line at the bottom and electronically sign. The CDI & [facility] Coding staff will review the response and follow-up if needed. Please note: Queries are made part of the Legal Health Record. If you have any questions, please contact the author of this message via ITS. Dr. Shanna Knight UTI is documented in the H&P 06/28 and progress notes 06/29 & 06/30. Additional clarification regarding this diagnosis is requested. History/Risk Factors: 65-year-old female presents to the ED from [facility] for worsening mental status. The patient is bedridden with hernandez catheter, severe obesity, and pressure ulcers to left heel, right lower back, right buttock and right leg. Documented in H&P 06/28 and Wound care consult 06/30. Clinical Indicators: Vital Signs 06/27: B/P 137/78; HR 123; Temp 98.2 Oral; RR 24; SpO2 98% 4L nasal cannula WBC 06/27: 14.2 Lactic acid 06/27: 2.2 Urinalysis 06/27: Appearance: Turbid; Nitrate: Positive; Leukocyte Esterase: Large; Wbc: >182. Urine Culture: Gram Neg Bacilli; verified 07/01 Treatment: Antibiotics: 06/28 Ceftriaxone 2gm IVPB x1; 06/28 Ceftriaxone 1gm IVPB Q12HR. Fluids: 06/27 0.9NS 1L bolus; 06/28 0.9NS 100cc/hr d/c 07/29 Please clarify if there is an additional diagnosis associated with the UTI: [ ] UTI only [ ] UTI secondary to indwelling hernandez catheter [ ] UTI secondary to indwelling hernandez catheter with Sepsis [ ] Other, please specify [ ] Unable to determine (Template Last Revised: May 2020) UTI with sepsis on admission MTDD
--- NOTE | 2020-07-01 13:54 | CDI ---
Documentation Clarification Form Date: 07/01/2020 01:27:39 PM From: Minnie Walter RN CCDS Admit Date: 06/28/2020 12:44:00 AM Patient Name: Sandy Mcneil Visit Number: [id number] Discharge Date: ATTENTION: The Clinical Documentation Specialists (CDI) and [facility] Coding Staff appreciate your assistance in clarifying documentation. Please respond to the clarification below the line at the bottom and electronically sign. The CDI & [facility] Coding staff will review the response and follow-up if needed. Please note: Queries are made part of the Legal Health Record. If you have any questions, please contact the author of this message via ITS. Dr. Shanna Knight Protein Calorie Malnutrition is documented in Cardiology Progress note 06/29. Additional clarification regarding the severity of malnutrition is requested. History/Risk Factors: 65-year-old female presents to the ED from [facility] for worsening mental status. The patient is bedridden with hernandez catheter, severe obesity, and pressure ulcers to left heel, right lower back, right buttock, and right leg. Med Hx: DM. Documented in H&P 06/28 and Wound care consult 06/30. Clinical Indicators: Dietary consult: Current BMI: 47.3 PMHx: AFib, Seizure disorder, Hypomagnesemia, Hypokalemia, Lymphedema and Multiple Pressure injuries. Nutrition Assessment: Nutrition Intake: Poor; Consumed: 25-50%; Heart healthy diet. Physical Findings: Obese, Overweight and Pressure ulcers. Estimated Protein Needs (grams/kg): 1.2-1.5; Estimated Protein Needs (grams/day): 73-92. Nutritional Diagnosis: Increased nutrient needs: PRO, Vitamin C and Zinc. As Evidenced to: Wound healing; As Evidenced by: Multiple pressure injuries; Outcome status: Initiated. Nutritional Goals: Meeting 75% of estimated nutritional needs. Improved skin integrity. Cardiology progress note 06/30: Patient has generalized anasarca of the diffuse edema. Treatment: Dietary Consult: See above Supplements:06/30 Alexis BID Lab monitoring: Please clarify the acuity of malnutrition, if known: [ ] Mild Protein-Calorie Malnutrition [ ] Moderate Protein-Calorie Malnutrition [ ] Severe Protein-Calorie Malnutrition [ ] Other condition, please specify [ ] Unable to Determine (Template Last Revised: May 2020) Mild to moderate protein calorie malnutrition MTDD
--- NOTE | 2020-07-01 14:15 | P.PN ---
Subjective Progress Note Date: 07/01/20 I'm seeing the patient for the first time. Please refer to Dr. Finnegan's note for detailed further neurological history and workup. The patient stated she doing the same compared to initial presentation. Objective - Vital Signs Vital signs: Vital Signs Temp 98 F 07/01/20 12:15 Pulse 68 07/01/20 12:15 Resp 16 07/01/20 12:15 BP 154/79 07/01/20 12:15 Pulse Ox 98 07/01/20 12:15 Intake & Output 06/30/20 07/01/20 07/01/20 18:59 06:59 18:59 Intake Total 1085 480 Output Total 1880 Balance 1085 -1880 480 Weight 137.07 kg 139.8 kg Intake: Oral 1085 480 Output: Urine 1880 Other: Voiding Method Indwelling Catheter Indwelling Catheter Indwelling Catheter - Exam GENERAL: The patient is lying in bed and is not in acute distress. INTEGUMNTARY: Has generalized lymphedema. NEUROLOGICAL: Higher mental function: The patient is awake, alert, oriented to self. She know she is in hospital but does not know the name. She stated the year was 2019. Patient is following commands. No aphasia and no neglect. Cranial nerves: The pupils are round, equal and reactive to light. Visual mack are full to confrontation throughout. Extraocular movement is intact no nystagmus is noted. Facial sensation is normal to touch throughout. The facial strength is normal throughout. No dysarthria is noted. S Motor: Unable to assess gait. The strength in upper extremities are On muscle strength testing biceps are 4, triceps 4, rug cleaning supervisor 3. Able to minimally wiggle 1-2 toes. Otherwise lower extremities are limited. Patient has significant lymph edema. Sensation: Sensation is normal to touch throughout. - Labs CBC & Chem 7: 07/01/20 08:17 07/01/20 08:17 Labs: Abnormal Lab Results - Last 24 Hours (Table) 06/30/20 06/30/20 07/01/20 Range/Units 16:52 20:28 06:14 Lymphocytes # (1.0-4.8) k/uL Sodium (137-145) mmol/L Chloride (98-107) mmol/L BUN (7-17) mg/dL Glucose (74-99) mg/dL POC Glucose (mg/dL) 120 H 129 H 141 H (75-99) mg/dL 07/01/20 07/01/20 07/01/20 Range/Units 08:17 08:17 12:05 Lymphocytes # 0.9 L (1.0-4.8) k/uL Sodium 132 L (137-145) mmol/L Chloride 97 L (98-107) mmol/L BUN 20 H (7-17) mg/dL Glucose 126 H (74-99) mg/dL POC Glucose (mg/dL) 123 H (75-99) mg/dL Microbiology - Last 24 Hours (Table) 06/27/20 23:27 Urine Culture - Preliminary Urine,Voided Proteus mirabilis Gram Neg Bacilli 06/27/20 23:30 Blood Culture - Preliminary Blood No Growth after 72 hours 06/27/20 23:15 Blood Culture - Preliminary Blood No Growth after 72 hours Assessment and Plan Assessment: * Altered mental status, probably due to toxic metabolic encephalopathy-- --improving. * Acute Proteus spec UTI * Hyponatremia--slight improvement * Probable dementia. * Elevated cardiac enzymes * Morbid obesity * Significant Lymphedema * Chronic disability, progressive profound weakness, bedbound status. * Stage IV decubitus ulcer. * Tobacco use of 50 pack years, quit 01/28/2020. Plan: * Patient is being treated for UTI with Rocephin. * Treatment of hyponatremia as per IM. * Cardiology on board for elevated cardiac enzymes. * Patient had a normal ammonia, hemoglobin A1c 5.7. * B12 569, folate 10.0. * Patient's computed tomography scan of the head shows some degree of hydrocephalus. I do not believe patient is a candidate for ventriculoperitoneal shunting, based upon her degree of dementia and gait dysfunction (bedbound status). May consider neurosurgery consult an outpatient. * Continue Depakote for seizure disorder, her levels are 42.5, which is acceptable. * Per Dr. Finnegan: "Obtained records from [facility] and [facility]. Only single paper arrived, which was computed tomography scan of the head. Nothing else". * MRI of the cervical and lumbar spine was ordered by Dr. Finnegan. If unable to obtain. Then the we can get CT of the cervical and the lumbar region. I was notified by the patient's nurse that the patient could not fit for MRI, therefore will proceed with CT. * Patient probably will need EMG and nerve conductions of upper and lower extremities to evaluate for peripheral neuropathy. The plan is discussed with the patient's nurse. Will continue to follow. Benjie Pickens MD Neuro-Hospitalist Time with Patient: Less than 30
--- NOTE | 2020-07-01 14:53 | CT ---
EXAMINATION TYPE: CT lumbar spine wo con DATE OF EXAM: 07/01/2020 2:39 PM COMPARISON: None HISTORY: right arm and leg weakness, neck and back pain, no injury CT DLP: 1046.3 mGycm Automated exposure control for dose reduction was used. Unenhanced CT of the lumbar spine was performed. Bone and soft tissue window settings are submitted as well as coronal and sagittal reconstructions. Patient motion and streak artifact limits evaluation. L1-L2: Mild degenerative disc space narrowing with mild posterior disc bulge. No effacement of the ve ntral thecal sac or antoine disc herniation on this limited study. No facet joint arthropathy. No evid ence for foraminal encroachment. L2-L3: Mild degenerative disc space narrowing with mild posterior disc bulge. No effacement of the ve ntral thecal sac or antoine disc herniation on this limited study. No facet joint arthropathy. No evid ence for foraminal encroachment. L3-L4: Mild degenerative disc space narrowing with mild posterior disc bulge. No effacement of the ve ntral thecal sac or antoine disc herniation on this limited study. No facet joint arthropathy. No evid ence for foraminal encroachment. L4-L5: Vacuum disc changes noted. Posterior disc bulge with effacement of the ventral thecal sac. Dis c herniation is difficult to exclude as well associated central stenosis. L5-S1: Mild degenerative disc space narrowing with mild posterior disc bulge. No effacement of the ve ntral thecal sac or antoine disc herniation on this limited study. No facet joint arthropathy. No evid ence for foraminal encroachment. IMPRESSION: 1. Significantly Limited study given streak artifact and patient motion. 2. I cannot exclude that disc herniation with central stenosis at L4-5.
--- NOTE | 2020-07-01 14:56 | CT ---
EXAMINATION TYPE: CT cervical spine wo con DATE OF EXAM: 07/01/2020 COMPARISON: None HISTORY: right arm and leg weakness, neck and back pain, no injury CT DLP: 597.6 mGycm. Automated Exposure Control for Dose Reduction was Utilized. TECHNIQUE: CT scan of the cervical spine is obtained without contrast, axial images are obtained, sa gittal and coronal reformatted images are also reviewed. FINDINGS: Curvature is noted convex to the left. Cervical spine is visualized in its entirety from C1 through upper thoracic levels, demonstrates satisfactory alignment without evidence of acute fractur e or dislocation. Prevertebral soft tissue appears within normal limits. The C1-C2 articulation is within normal limits on the coronal images. Review of axial images shows no significant spinal canal stenosis or neural foraminal narrowing at an y cervical level. Thyroid gland is felt within normal limits. Visualized lung apices are clear. IMPRESSION: Scoliotic curvature convex to the left. No disc herniation or central stenosis appreciate d. No evidence for fracture or malalignment.
--- NOTE | 2020-07-01 15:45 | P.PN ---
Subjective Progress Note Date: 07/01/20 No new complaints today. Pt feels overall improved in terms of mentation. Notes greater flexibility of left arm and hand, same mobility in right arm. Objective - Vital Signs Vital signs: Vital Signs Temp 98 F 07/01/20 12:15 Pulse 68 07/01/20 12:15 Resp 16 07/01/20 12:15 BP 154/79 07/01/20 12:15 Pulse Ox 98 07/01/20 12:15 Intake & Output 06/30/20 07/01/20 07/01/20 18:59 06:59 18:59 Intake Total 1085 720 Output Total 1880 Balance 1085 -1880 720 Weight 137.07 kg 139.8 kg Intake: Oral 1085 720 Output: Urine 1880 Other: Voiding Method Indwelling Catheter Indwelling Catheter Indwelling Catheter - Exam Gen: awake, alert HEENT: normocephalic, atraumatic, good hearing acuity, moist mucous membranes Resp: good air exchange, breathing comfortably with no accessory muscle use CVS: good distal perfusion x 4, GI: soft, NTTP, ND : no SPT, no CVAT, hernandez catheter is present MSK: diffuse pitting edema/anasarca, no clubbing Neuro: non-focal, moving all extremities Psych: cooperative, euthymic mood - Labs CBC & Chem 7: 07/01/20 08:17 07/01/20 08:17 Labs: Abnormal Lab Results - Last 24 Hours (Table) 06/30/20 06/30/20 07/01/20 Range/Units 16:52 20:28 06:14 Lymphocytes # (1.0-4.8) k/uL Sodium (137-145) mmol/L Chloride (98-107) mmol/L BUN (7-17) mg/dL Glucose (74-99) mg/dL POC Glucose (mg/dL) 120 H 129 H 141 H (75-99) mg/dL 07/01/20 07/01/20 07/01/20 Range/Units 08:17 08:17 12:05 Lymphocytes # 0.9 L (1.0-4.8) k/uL Sodium 132 L (137-145) mmol/L Chloride 97 L (98-107) mmol/L BUN 20 H (7-17) mg/dL Glucose 126 H (74-99) mg/dL POC Glucose (mg/dL) 123 H (75-99) mg/dL Microbiology - Last 24 Hours (Table) 06/27/20 23:27 Urine Culture - Preliminary Urine,Voided Proteus mirabilis Gram Neg Bacilli 06/27/20 23:30 Blood Culture - Preliminary Blood No Growth after 72 hours 06/27/20 23:15 Blood Culture - Preliminary Blood No Growth after 72 hours Assessment and Plan Assessment: Metabolic encephalopathy due to UTI -Continue with the home Depakote dose -Neurology following -Continue ceftriaxone, cultures growing proteus. Follow sensitivities = pending Troponin elevation, likely sec to acute illness/UTI -Patient currently on Eliquis for A. fib -Continue with aspirin -Cardiology recommending echo = normal ejection fraction, no diastolic dysfunction, mildly elevated right ventricle, normal estimated RVSP -Cardiac monitoring Hyponatremia/anasarca -Likely hypervolemic sec to third spacing, low albumin. -Consult nephrology, appreciate recs -Started lasix. Improving with diuretics. Lactic acidosis -Resolved. L buttock unstageable ulcer -Wound care consult. Seems likely that patient has a hernandez sec to this, catheter changed 06/29. D/w nurse Chronic conditions: Type II DM, A. fib -Continue home meds -Lispro sliding scale -A1C ok General weakness PT and OT DVT prophylaxis -Eliquis CODE STATUS: Full Code Discussed with: Patient, RN Anticipated discharge date: 2-[address]: [facility]: Had discussion with regarding overall medical condition and short and joint terminal attack controller care goals. We will continue to try to improve patient's underlying medical conditions. Patient counseled on doing arm exercises while lying in bed today, if there is improvement by Tuesday, this will dictate joint terminal attack controller goals - either LTC/Home with hospice or aggressive rehab.
[2020-07-01 17:14] LABS: Glucose,Whole Blood 117 mg/dL (75-99)
[2020-07-01 20:11] LABS: Glucose,Whole Blood 119 mg/dL (75-99)
[2020-07-02 06:35] LABS: Glucose,Whole Blood 132 mg/dL (75-99)
[2020-07-02] MEDS: INSULIN ASPART (NovoLOG) 100 UNIT/ML VIAL SQ SCH ×4 (06:38→20:36)
--- NOTE | 2020-07-02 07:24 | XR ---
EXAMINATION TYPE: XR chest 1V DATE OF EXAM: 07/02/2020 CLINICAL HISTORY: Difficulty breathing progress study. TECHNIQUE: Single AP portable upright view of the chest is obtained. COMPARISON: Chest x-ray from 5 days earlier FINDINGS: Background chronic parenchymal change. Improved aeration right lung base. Stable left basi lar linear opacity favoring scarring and/or atelectasis. No new suspicious focal airspace opacity, pl eural effusion, or pneumothorax seen. Cardiac silhouette size upper limits of normal with atheroscler otic aorta. Osseous structures are demineralized. IMPRESSION: Chronic parenchymal changes. Improved aeration right lung base. Stable left basilar opaci ty favoring scarring and/or atelectasis. No new infiltrate.
[2020-07-02 08:44] LABS: African American GFR (CKD) >90 (>60 ml/min/1.73 sqM); Anion Gap 9 mmol/L; Blood Urea Nitrogen 21 mg/dL (7-17); Calcium 9.1 mg/dL (8.4-10.2); Carbon Dioxide 29 mmol/L (22-30); Chloride 95 mmol/L (98-107); Glucose 132 mg/dL (74-99); Magnesium 1.6 mg/dL (1.6-2.3); Non-African American GFR(CKD) >90 (>60 ml/min/1.73 sqM); Potassium 3.5 mmol/L (3.5-5.1); Sodium 133 mmol/L (137-145)
[2020-07-02] MEDS: ASPIRIN 81 MG PO SCH (09:54)
[2020-07-02] MEDS: FUROSEMIDE 10 MG/ML 4 ML VIAL IV SCH (09:55)
[2020-07-02] MEDS: METOPROLOL TARTRATE 50 MG TAB PO SCH ×2 (09:55→20:47)
[2020-07-02] MEDS: ATORVASTATIN 80 MG TAB PO SCH (09:55)
[2020-07-02] MEDS ORDERED: POTASSIUM CHLORIDE ER 20 MEQ TAB.ER PO STA (11:37)
--- NOTE | 2020-07-02 11:38 | P.PN ---
Subjective Patient is seen in follow-up for hyponatremia. Sodium level improving. Maintain on IV Lasix. Good urine output. No chest pain or shortness of breath. Blood pressure stable. On room air. Vital signs are stable. General: The patient appeared well nourished and normally developed. HEENT: Head exam is unremarkable. Neck is without jugular venous distension. LUNGS: Breath sounds decreased. HEART: Rate and Rhythm are regular. ABDOMEN: Soft, obese. EXTREMITITES: Trace edema. Objective - Vital Signs Vital signs: Vital Signs Temp 97.5 F L 07/02/20 08:00 Pulse 62 07/02/20 08:00 Resp 16 07/02/20 08:00 BP 124/63 07/02/20 08:00 Pulse Ox 99 07/02/20 08:00 Intake & Output 07/01/20 07/02/20 07/02/20 18:59 06:59 18:59 Intake Total 1320 236 Output Total 1350 Balance 1320 -1350 236 Weight 129.5 kg Intake: Oral 1320 236 Output: Urine 1350 Other: Voiding Method Indwelling Catheter Indwelling Catheter Indwelling Catheter - Labs CBC & Chem 7: 07/01/20 08:17 07/02/20 07:55 Labs: Abnormal Lab Results - Last 24 Hours (Table) 07/01/20 07/01/20 07/01/20 Range/Units 08:17 12:05 17:12 Lymphocytes # 0.9 L (1.0-4.8) k/uL Sodium (137-145) mmol/L Chloride (98-107) mmol/L BUN (7-17) mg/dL Glucose (74-99) mg/dL POC Glucose (mg/dL) 123 H 117 H (75-99) mg/dL 07/01/20 07/02/20 07/02/20 Range/Units 20:09 06:34 07:55 Lymphocytes # (1.0-4.8) k/uL Sodium 133 L (137-145) mmol/L Chloride 95 L (98-107) mmol/L BUN 21 H (7-17) mg/dL Glucose 132 H (74-99) mg/dL POC Glucose (mg/dL) 119 H 132 H (75-99) mg/dL Microbiology - Last 24 Hours (Table) 06/27/20 23:30 Blood Culture - Preliminary Blood No Growth after 96 hours 06/27/20 23:15 Blood Culture - Preliminary Blood No Growth after 96 hours 06/27/20 23:27 Urine Culture - Preliminary Urine,Voided Proteus mirabilis Gram Neg Bacilli Assessment and Plan Plan: Assessment: 1. Hypervolemic hyponatremia. Improving with diuresis. Urine osmolality 416 and urine sodium 11. TSH 4.9. 2. Hypokalemia from diuresis. 3. Hypomagnesemia from diuresis. 4. Diabetes mellitus. 5. Acute on chronic diastolic CHF. 6. UTI with urine culture positive for Proteus maintained on antibiotics. 7. Altered mental status. Neurology following. Plan: Decrease Lasix to 40 mg IV once daily. Replace potassium and magnesium. 1500 mL fluid restriction. Avoid nephrotoxins. Continue to monitor renal function and urine output.
[2020-07-02 11:49] LABS: Glucose,Whole Blood 119 mg/dL (75-99)
[2020-07-02] MEDS: MAGNESIUM SULFATE-D5W PMX 1 GM in DEXTROSE/WATER 1 100ML.BAG IVPB SCH ×2 (12:33→15:34)
--- NOTE | 2020-07-02 12:54 | P.PN ---
Subjective Progress Note Date: 07/02/20 The patient was seen at bedside and feels about the same compared to yesterday. CT cervical was reported as scoliotic curvature convex to the left. No disc herniation or central stenosis appreciated. No evidence for fracture or malalignment. CT lumbar is reported as significant limited study given the streak artifact and the patient motion. I cannot exclude that disc herniation with central stenosis at L4-L5. Objective - Vital Signs Vital signs: Vital Signs Temp 98.5 F 07/02/20 12:00 Pulse 54 L 07/02/20 12:00 Resp 18 07/02/20 12:00 BP 143/67 07/02/20 12:00 Pulse Ox 98 07/02/20 12:00 Intake & Output 07/01/20 07/02/20 07/02/20 18:59 06:59 18:59 Intake Total 1320 236 Output Total 1350 600 Balance 1320 -1350 -364 Weight 129.5 kg Intake: Oral 1320 236 Output: Urine 1350 600 Other: Voiding Method Indwelling Catheter Indwelling Catheter Indwelling Catheter - Exam GENERAL: The patient is lying in bed and is not in acute distress. INTEGUMNTARY: Has generalized lymphedema. NEUROLOGICAL: Higher mental function: The patient is awake, alert, oriented to self. She know she is in hospital but does not know the name. She stated the year was 2019. Patient is following commands. No aphasia and no neglect. Cranial nerves: The pupils are round, equal and reactive to light. Visual mack are full to confrontation throughout. Extraocular movement is intact no nystagmus is noted. Facial sensation is normal to touch throughout. The facial strength is normal throughout. No dysarthria is noted. S Motor: Unable to assess gait. 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 Proximal bilateral lower extremities are 2/5. Able to minimally wiggle 1-2 toes. Otherwise lower extremities are limited. Patient has significant lymphedema (upper and lower). Sensation: Sensation is normal to touch throughout. - Labs CBC & Chem 7: 07/01/20 08:17 07/02/20 07:55 Labs: Abnormal Lab Results - Last 24 Hours (Table) 07/01/20 07/01/20 07/02/20 Range/Units 17:12 20:09 06:34 Sodium (137-145) mmol/L Chloride (98-107) mmol/L BUN (7-17) mg/dL Glucose (74-99) mg/dL POC Glucose (mg/dL) 117 H 119 H 132 H (75-99) mg/dL 07/02/20 07/02/20 Range/Units 07:55 11:48 Sodium 133 L (137-145) mmol/L Chloride 95 L (98-107) mmol/L BUN 21 H (7-17) mg/dL Glucose 132 H (74-99) mg/dL POC Glucose (mg/dL) 119 H (75-99) mg/dL Microbiology - Last 24 Hours (Table) 06/27/20 23:30 Blood Culture - Preliminary Blood No Growth after 96 hours 06/27/20 23:15 Blood Culture - Preliminary Blood No Growth after 96 hours 06/27/20 23:27 Urine Culture - Preliminary Urine,Voided Proteus mirabilis Gram Neg Bacilli Assessment and Plan Assessment: * Altered mental status, probably due to septic encpehalopathy (UTI) and component toxic metabolic encephalopathy----improving. * Significant Lymphedema * Acute Proteus spec UTI * Hyponatremia--slight improvement * Probable dementia. * Elevated cardiac enzymes * Chronic disability, progressive profound weakness, bedbound status. * Morbid obesity * Stage IV decubitus ulcer. * Tobacco use of 50 pack years, quit 01/28/2020. Plan: * Patient is being treated for UTI with Rocephin. * Treatment of hyponatremia as per IM. * Cardiology on board for elevated cardiac enzymes. * Patient had a normal ammonia, hemoglobin A1c 5.7. * B12 569, folate 10.0. * TSH is 4.9 (which the level is high). I will repeat it with reflex. If abnormal will defer management to the primary team. * Patient's computed tomography scan of the head shows some degree of hydr ocephalus. I do not believe patient is a candidate for ventriculoperitoneal shunting, based upon her degree of dementia and gait dysfunction (bedbound status). May consider neurosurgery consult an outpatient. * Continue Depakote for seizure disorder, her levels are 42.5, which is acceptable. * Per Dr. Finnegan: "Obtained records from [facility] and [facility]. Only single paper arrived, which was computed tomography scan of the head. Nothing else". * MRI of the cervical and lumbar spine was unable to be obtained because of patient's body habitus. * CT cervical was reported as scoliotic curvature convex to the left. No disc herniation or central stenosis appreciated. No evidence for fracture or malalignment. * CT lumbar is reported as significant limited study given the streak artifact and the patient motion. I cannot exclude that disc herniation with central stenosis at L4-L5. * Patient probably will need EMG and nerve conductions of upper and lower extr emities to evaluate for peripheral neuropathy. * The patient will benefit from inpatient therapy if possible. If not then would subacute rehab. The plan is discussed with the patient's nurse. I spoke with the patient's and relayed my findings. Neurology will sign off. Please reconsult if need. Benjie Pickens MD Neuro-Hospitalist Time with Patient: Less than 30
[2020-07-02] MEDS: DIVALPROEX 250 MG TABLET.DR PO SCH ×2 (15:33→20:48)
[2020-07-02 17:09] LABS: Glucose,Whole Blood 132 mg/dL (75-99)
[2020-07-02 20:20] LABS: Glucose,Whole Blood 122 mg/dL (75-99)
[2020-07-02] MEDS: MENTHOL-ZINC OXIDE OINT 113 GM TUBE TOPICAL SCH (20:47)
[2020-07-02] MEDS: NYSTATIN 100,000 UNIT/GM POWD 15 GM TOPICAL SCH (20:47)
[2020-07-02] MEDS: APIXABAN 2.5 MG TABLET PO SCH (20:47)
--- NOTE | 2020-07-02 20:49 | P.PN ---
Progress Note - Text Progress Note Date: 07/02/20 History of presenting complaint: The patient is a 65-year-old female with an extensive PMH including dementia, severe obesity, bedridden at [facility], indwelling Nunez catheter, A. fib on Eliquis, seizure disorder, and stage IV decubitus ulcer who was sent in from the nursing facility due to worsening mental status. The patient was a very poor historian and thereby history obtained from the chart and the emergency room physician. The patient who is normally oriented to self and place as per the notes from [facility] was noted to have hematuria earlier on 06/27 along with worsening confusion for which she was sent in. The patient only answered basic questions such as her name and that she was at a hospital. She would simply stare when asked any additional questions. She underwent an extensive evaluation in the emergency room with a brain CT showing atrophy, mild hydrocephalus, and right-sided mastoiditis. EKG revealed sinus tachycardia with LVH at 125 bpm. Chest x-ray revealed a linear mild infiltrate and atelectasis at the lung bases with no CHF. Laboratory evaluation was remarkable for lactic acid 2.2, troponin 0.184, grossly abnormal UA, sodium 128, chloride 91, BUN 20, valproic acid level 42.5, and WBC count 14.2. Patient admitted with a diagnosis of acute metabolic encephalopathy from UTI. Placed an IV ceftriaxone. Troponin elevation felt to be from hemodynamic mismatch. Also found to have hyponatremia from hypervolemia. Given Lasix. Lactic acidosis type II that improved. Also has left buttock unstageable ulcer. Wound care was consulted. Today: Laying in bed. Awake. Answering simple questions. Oral intake about 50% . Review of systems: Was done for constitutional, cardiovascular, GI, pulmonary. relevant finding as above Active Medications Apixaban (Apixaban 2.5 Mg Tablet) 2.5 mg PO BID@ [facility] Aspirin (Aspirin 81 Mg) 81 mg PO DAILY [facility] Last Admin: 07/02/20 09:54 Dose: 81 mg Documented by: Atorvastatin Calcium (Atorvastatin 80 Mg Tab) 80 mg PO DAILY [facility] Last Admin: 07/02/20 09:55 Dose: 80 mg Documented by: Calamine/Phenol (Menthol-Zinc Oxide Oint 113 Gm Tube) 1 applic TOPICAL BID@ [facility] Divalproex Sodium (Divalproex 250 Mg Tablet.) 250 mg PO TID@0600,1400,2200 [facility] Last Admin: 07/02/20 15:33 Dose: 250 mg Documented by: Furosemide (Furosemide 10 Mg/Ml 4 Ml Vial) 40 mg IV DAILY [facility] Ceftriaxone Sodium 1 gm/ (Sodium Chloride) 50 mls @ 100 mls/hr IVPB Q12HR [facility] Last Admin: 07/02/20 09:55 Dose: 100 mls/hr Documented by: Insulin Aspart (Insulin Aspart (Novolog) 100 Unit/Ml Vial) 0 unit SQ ACHS [facility]; Protocol Last Admin: 07/02/20 20:36 Dose: Not Given Documented by: Levothyroxine Sodium (Levothyroxine 50 Mcg Tab) 50 mcg PO DAILY@0800 [facility] Metoprolol Tartrate (Metoprolol Tartrate 50 Mg Tab) 50 mg PO BID@0800,2000 [facility] Last Admin: 07/02/20 09:55 Dose: 50 mg Documented by: Nitroglycerin (Nitroglycerin Sl Tabs 0.4 Mg Tab) 0.4 mg SUBLINGUAL Q5M PRN PRN Reason: Chest Pain Nystatin (Nystatin 100,000 Unit/Gm Powd 15 Gm) 1 applic TOPICAL BID [facility] INVESTIGATIONS, reviewed in the clinical context: Potassium 3.5 crit 0.65 Chest x-ray: Chronic parenchymal changes Cervical and lumbar spine CT: Nonspecific findings 2-D echocardiogram: Moderate concentric LVH. EF 55-60% EKG: Sinus tachycardia Computed tomography scan of the brain: Cerebral atrophy. Some Assessment and plan -Metabolic encephalopathy due to UTI, some improvement Continue with antibiotics. Follow clinically -Acute UTI with cystitis secondary to Proteus On IV ceftriaxone -Troponin elevation, likely due to hemodynamic mismatch. Seen by currently. Not for any further workup. -Hyponatremia/anasarca, likely hypovolemic. Given Lasix. Improved Lactic acidosis -Resolved. -L buttock unstageable ulcer Wound care consult. Diabetes mellitus type 2 Follow Accu-Cheks -Acute on chronic medical debility PT and OT -Persistent atrial fibrillation, rate controlled On eliquis -Hypokalemia and hypomagnesemia from diuresis Follow electrolytes -Hypothyroid Continue with Synthroid. TSH somewhat abnormal could be from patient being on amiodarone. -Moderate cognitive impairment likely from underlying dementia CODE STATUS: Full Code Continue current medications. Transferred to F in 24-48 hours
[2020-07-02] MEDS ORDERED: AMOXIC-POT CLAV 875-125MG 1 EACH TAB PO SCH (21:00)
[2020-07-02] MEDS ORDERED: NON FORMULARY DRUG (Prostat 30 ML) PO SCH (21:00)
[2020-07-03 06:14] LABS: Glucose,Whole Blood 133 mg/dL (75-99)
[2020-07-03] MEDS: DIVALPROEX 250 MG TABLET.DR PO SCH ×4 (06:19→22:00)
[2020-07-03] MEDS ORDERED: FUROSEMIDE 10 MG/ML 4 ML VIAL IV SCH (09:00)
[2020-07-03] MEDS: INSULIN ASPART (NovoLOG) 100 UNIT/ML VIAL SQ SCH ×4 (09:31→20:31)
[2020-07-03] MEDS: NYSTATIN 100,000 UNIT/GM POWD 15 GM TOPICAL SCH ×2 (09:40→20:46)
[2020-07-03] MEDS: ASPIRIN 81 MG PO SCH (09:41)
[2020-07-03] MEDS: MENTHOL-ZINC OXIDE OINT 113 GM TUBE TOPICAL SCH ×2 (09:41→20:46)
[2020-07-03] MEDS: APIXABAN 2.5 MG TABLET PO SCH ×2 (09:42→20:47)
[2020-07-03] MEDS: AMOXIC-POT CLAV 875-125MG 1 EACH TAB PO SCH ×2 (09:42→20:46)
[2020-07-03] MEDS: METOPROLOL TARTRATE 50 MG TAB PO SCH ×2 (09:42→20:46)
[2020-07-03] MEDS: LEVOTHYROXINE 50 MCG TAB PO SCH (09:42)
[2020-07-03] MEDS: ATORVASTATIN 80 MG TAB PO SCH (09:42)
--- NOTE | 2020-07-03 11:51 | P.PN ---
Subjective Patient is seen in follow-up for hyponatremia. Sodium level improving. Maintain on IV Lasix. Good urine output. No chest pain or shortness of breath. Blood pressure stable. On room air. Wants to go home. Vital signs are stable. General: The patient appeared well nourished and normally developed. HEENT: Head exam is unremarkable. Neck is without jugular venous distension. LUNGS: Breath sounds decreased. HEART: Rate and Rhythm are regular. ABDOMEN: Soft, obese. EXTREMITITES: Trace edema. Objective - Vital Signs Vital signs: Vital Signs Temp 98.5 F 07/03/20 08:00 Pulse 60 07/03/20 08:00 Resp 18 07/03/20 08:00 BP 141/90 07/03/20 08:00 Pulse Ox 99 07/03/20 08:00 Intake & Output 07/02/20 07/03/20 07/03/20 18:59 06:59 18:59 Intake Total 597 118 Output Total 600 300 Balance -3 -300 118 Weight 130.907 kg Intake: Oral 597 118 Output: Urine 600 300 Other: Voiding Method Indwelling Catheter Indwelling Catheter Indwelling Catheter - Labs CBC & Chem 7: 07/01/20 08:17 07/02/20 07:55 Labs: Abnormal Lab Results - Last 24 Hours (Table) 07/02/20 07/02/20 07/02/20 Range/Units 07:55 11:48 17:01 POC Glucose (mg/dL) 119 H 132 H (75-99) mg/dL TSH 5.780 H (0.465-4.680) mIU/L Free T4 3.00 H (0.78-2.19) ng/dL 07/02/20 07/03/20 Range/Units 20:18 06:10 POC Glucose (mg/dL) 122 H 133 H (75-99) mg/dL TSH (0.465-4.680) mIU/L Free T4 (0.78-2.19) ng/dL Microbiology - Last 24 Hours (Table) 06/27/20 23:27 Urine Culture - Preliminary Urine,Voided Proteus mirabilis Gram Neg Bacilli Enterococcus faecalis VRE 06/27/20 23:30 Blood Culture - Preliminary Blood No Growth after 120 hours 06/27/20 23:15 Blood Culture - Preliminary Blood No Growth after 120 hours Assessment and Plan Plan: Assessment: 1. Hypervolemic hyponatremia. Improving with diuresis. Urine osmolality 416 and urine sodium 11. TSH 4.9. 2. Hypokalemia from diuresis. 3. Hypomagnesemia from diuresis. Replaced. 4. Diabetes mellitus. 5. Acute on chronic diastolic CHF. 6. UTI with urine culture positive for Proteus maintained on antibiotics. 7. Altered mental status. Neurology following. Plan: I will change Lasix to 40 mg orally once daily. Morning labs pending. 1500 mL fluid restriction. Avoid nephrotoxins. Continue to monitor renal function and urine output.
[2020-07-03 11:55] LABS: Glucose,Whole Blood 131 mg/dL (75-99)
[2020-07-03 11:56] VITALS: BMI 45.1
[2020-07-03 13:46] LABS: African American GFR (CKD) >90 (>60 ml/min/1.73 sqM); Anion Gap 7 mmol/L; Blood Urea Nitrogen 27 mg/dL (7-17); Carbon Dioxide 28 mmol/L (22-30); Chloride 95 mmol/L (98-107); Glucose 129 mg/dL (74-99); Magnesium 1.9 mg/dL (1.6-2.3); Non-African American GFR(CKD) >90 (>60 ml/min/1.73 sqM); Sodium 130 mmol/L (137-145)
[2020-07-03 13:55] LABS: Potassium 4.2 mmol/L (3.5-5.1)
--- NOTE | 2020-07-03 16:07 | CDI ---
Documentation Clarification Form Date: 07/03/2020 03:25:50 PM From: Minnie Walter RN CCDS Admit Date: 06/28/2020 12:44:00 AM Patient Name: Sandy Mcneil Visit Number: [id number] Discharge Date: ATTENTION: The Clinical Documentation Specialists (CDI) and [facility] Coding Staff appreciate your assistance in clarifying documentation. Please respond to the clarification below the line at the bottom and electronically sign. The CDI & [facility] Coding staff will review the response and follow-up if needed. Please note: Queries are made part of the Legal Health Record. If you have any questions, please contact the author of this message via ITS. Florin Rivera MD Mild to Moderate protein malnutrition is documented on 07/01 query. Additional clarification regarding the severity of malnutrition is requested. History/Risk Factors: 65-year-old female presents to the ED from [facility] for worsening mental status. The patient is bedridden with hernandez catheter, severe obesity, and pressure ulcers to left heel, right lower back, right buttock, and right leg. Med Hx: DM. Documented in H&P 06/28 and Wound care consult 06/30. Clinical Indicators: Dietary consult: Current BMI: 47.3 PMHx: AFib, Seizure disorder, Hypomagnesemia, Hypokalemia, Lymphedema and Multiple Pressure injuries. Nutrition Assessment: Nutrition Intake: Poor; Consumed: 25-50%; Heart healthy diet. Physical Findings: Obese, Overweight and Pressure ulcers. Estimated Protein Needs (grams/kg): 1.2-1.5; Estimated Protein Needs (grams/day): 73-92. Nutritional Diagnosis: Increased nutrient needs: PRO, Vitamin C and Zinc. As Evidenced to: Wound healing; As Evidenced by: Multiple pressure injuries; Outcome status: Initiated. Nutritional Goals: Meeting 75% of estimated nutritional needs. Improved skin integrity. Cardiology progress note 06/30: Patient has generalized anasarca of the diffuse edema. Treatment: Dietary Consult: See above Supplements:06/30 Alexis BID Lab monitoring: Please clarify the acuity of malnutrition, if known: [ ] Mild Protein-Calorie Malnutrition [ ] Moderate Protein-Calorie Malnutrition [ ] Other condition, please specify [ ] Unable to Determine (Template Last Revised: May 2020) Patient is morbidly obese, not malnutrition MTDD
[2020-07-03 16:55] LABS: Glucose,Whole Blood 154 mg/dL (75-99)
[2020-07-03 17:14] VITALS: RESP 16
--- NOTE | 2020-07-03 19:51 | P.PN ---
Progress Note - Text Progress Note Date: 07/03/20 History of presenting complaint: The patient is a 65-year-old female with an extensive PMH including dementia, severe obesity, bedridden at [facility], indwelling Nunez catheter, A. fib on Eliquis, seizure disorder, and stage IV decubitus ulcer who was sent in from the nursing facility due to worsening mental status. The patient was a very poor historian and thereby history obtained from the chart and the emergency room physician. The patient who is normally oriented to self and place as per the notes from [facility] was noted to have hematuria earlier on 06/27 along with worsening confusion for which she was sent in. The patient only answered basic questions such as her name and that she was at a hospital. She would simply stare when asked any additional questions. She underwent an extensive evaluation in the emergency room with a brain CT showing atrophy, mild hydrocephalus, and right-sided mastoiditis. EKG revealed sinus tachycardia with LVH at 125 bpm. Chest x-ray revealed a linear mild infiltrate and atelectasis at the lung bases with no CHF. Laboratory evaluation was remarkable for lactic acid 2.2, troponin 0.184, grossly abnormal UA, sodium 128, chloride 91, BUN 20, valproic acid level 42.5, and WBC count 14.2. Patient admitted with a diagnosis of acute metabolic encephalopathy from UTI. Placed an IV ceftriaxone. Troponin elevation felt to be from hemodynamic mismatch. Also found to have hyponatremia from hypervolemia. Given Lasix. Lactic acidosis type II that improved. Also has left buttock unstageable ulcer. Wound care was consulted. Today: Laying in bed. Awake. Tired. Answering questions.. Review of systems: Was done for constitutional, cardiovascular, GI, pulmonary. relevant finding as above Active Medications Amoxicillin/Clavulanate Potassium (Amoxic-Pot Clav 875-125mg 1 Each Tab) 1 each PO Q12HR [facility] Last Admin: 07/03/20 09:42 Dose: 1 each Documented by: Apixaban (Apixaban 2.5 Mg Tablet) 2.5 mg PO BID@0800,2000 [facility] Last Admin: 07/03/20 09:42 Dose: 2.5 mg Documented by: Aspirin (Aspirin 81 Mg) 81 mg PO DAILY [facility] Last Admin: 07/03/20 09:41 Dose: 81 mg Documented by: Atorvastatin Calcium (Atorvastatin 80 Mg Tab) 80 mg PO DAILY [facility] Last Admin: 07/03/20 09:42 Dose: 80 mg Documented by: Calamine/Phenol (Menthol-Zinc Oxide Oint 113 Gm Tube) 1 applic TOPICAL BID@ [facility] Last Admin: 07/03/20 09:41 Dose: 1 applic Documented by: Divalproex Sodium (Divalproex 250 Mg Tablet.) 250 mg PO TID@0600,1400,2200 [facility] Last Admin: 07/03/20 16:44 Dose: 250 mg Documented by: Furosemide (Furosemide 40 Mg Tab) 40 mg PO DAILY [facility] Insulin Aspart (Insulin Aspart (Novolog) 100 Unit/Ml Vial) 0 unit SQ [facility]; Protocol Last Admin: 07/03/20 17:19 Dose: Not Given Documented by: Levothyroxine Sodium (Levothyroxine 50 Mcg Tab) 50 mcg PO DAILY@0800 [facility] Last Admin: 07/03/20 09:42 Dose: 50 mcg Documented by: Metoprolol Tartrate (Metoprolol Tartrate 50 Mg Tab) 50 mg PO BID@ [facility] Last Admin: 07/03/20 09:42 Dose: 50 mg Documented by: Nitroglycerin (Nitroglycerin Sl Tabs 0.4 Mg Tab) 0.4 mg SUBLINGUAL Q5M PRN PRN Reason: Chest Pain Nystatin (Nystatin 100,000 Unit/Gm Powd 15 Gm) 1 applic TOPICAL BID [facility] Last Admin: 07/03/20 09:40 Dose: 1 applic Documented by: INVESTIGATIONS, reviewed in the clinical context: July 03: Potassium 4.2 creatinine 0.55 Potassium 3.5 crit 0.65 Chest x-ray: Chronic parenchymal changes Cervical and lumbar spine CT: Nonspecific findings 2-D echocardiogram: Moderate concentric LVH. EF 55-60% EKG: Sinus tachycardia Computed tomography scan of the brain: Cerebral atrophy. Some Assessment and plan -Metabolic encephalopathy due to UTI, -better Continue with antibiotics. Follow clinically -Acute UTI with cystitis secondary to Proteus, VRE On IV ceftriaxone-completed course. We will give her oral course of nitrofurantoin. For the VRE -Troponin elevation, likely due to hemodynamic mismatch. Seen by cardiology. Not for any further workup. -Hyponatremia/anasarca, likely hypovolemic. Given Lasix. Improved Lactic acidosis -Resolved. -L buttock unstageable ulcer Wound care consult. Diabetes mellitus type 2 Follow Accu-Cheks -Acute on chronic medical debility PT and OT -Persistent atrial fibrillation, rate controlled On eliquis -Hypokalemia and hypomagnesemia from diuresis Follow electrolytes -Hypothyroid Continue with Synthroid. TSH somewhat abnormal could be from patient being on amiodarone. -Moderate cognitive impairment likely from underlying dementia CODE STATUS: Full Code Per the social staff worker patient's requesting another day stay in the hospital. We'll await further input from PTOT. Change antibiotics. 2 nitrofurantoin. Prognosis guarded.
[2020-07-03 20:08] LABS: Glucose,Whole Blood 124 mg/dL (75-99)
[2020-07-03] MEDS: NITROFURANTOIN MONOHYD/M-CRYST 100 MG CAP PO SCH (20:46)
[2020-07-04 06:20] LABS: Glucose,Whole Blood 131 mg/dL (75-99)
[2020-07-04] MEDS: DIVALPROEX 250 MG TABLET.DR PO SCH ×3 (06:20→13:51)
[2020-07-04] MEDS: INSULIN ASPART (NovoLOG) 100 UNIT/ML VIAL SQ SCH ×2 (06:22→13:39)
[2020-07-04 08:58] LABS: African American GFR (CKD) >90 (>60 ml/min/1.73 sqM); Anion Gap 11 mmol/L; Blood Urea Nitrogen 31 mg/dL (7-17); Calcium 9.2 mg/dL (8.4-10.2); Carbon Dioxide 27 mmol/L (22-30); Chloride 94 mmol/L (98-107); Glucose 127 mg/dL (74-99); Magnesium 1.9 mg/dL (1.6-2.3); Non-African American GFR(CKD) >90 (>60 ml/min/1.73 sqM); Potassium 3.7 mmol/L (3.5-5.1); Sodium 132 mmol/L (137-145)
[2020-07-04] MEDS ORDERED: FUROSEMIDE 40 MG TAB PO SCH (09:00)
[2020-07-04] MEDS: NYSTATIN 100,000 UNIT/GM POWD 15 GM TOPICAL SCH (09:08)
[2020-07-04] MEDS: ATORVASTATIN 80 MG TAB PO SCH (09:09)
[2020-07-04] MEDS: ASPIRIN 81 MG PO SCH (09:09)
[2020-07-04] MEDS: LEVOTHYROXINE 50 MCG TAB PO SCH (09:09)
[2020-07-04] MEDS: APIXABAN 2.5 MG TABLET PO SCH (09:09)
[2020-07-04] MEDS: METOPROLOL TARTRATE 50 MG TAB PO SCH (09:09)
[2020-07-04] MEDS: NITROFURANTOIN MONOHYD/M-CRYST 100 MG CAP PO SCH (09:09)
[2020-07-04] MEDS: AMOXIC-POT CLAV 875-125MG 1 EACH TAB PO SCH (09:09)
[2020-07-04] MEDS: MENTHOL-ZINC OXIDE OINT 113 GM TUBE TOPICAL SCH (09:10)
[2020-07-04 12:03] LABS: Glucose,Whole Blood 124 mg/dL (75-99)
--- NOTE | 2020-07-04 13:21 | P.PN ---
Subjective Patient is seen in follow-up for hyponatremia. Sodium level 132 today. Maintain on po Lasix. Good urine output. No chest pain or shortness of breath. Blood pressure stable. On room air. No active complaints. Vital signs are stable. General: The patient appeared well nourished and normally developed. HEENT: Head exam is unremarkable. Neck is without jugular venous distension. LUNGS: Breath sounds decreased. HEART: Rate and Rhythm are regular. ABDOMEN: Soft, obese. EXTREMITITES: Trace edema. Objective - Vital Signs Vital signs: Vital Signs Temp 97.2 F L 07/03/20 20:00 Pulse 56 L 07/04/20 04:00 Resp 16 07/04/20 04:00 BP 140/83 07/04/20 04:00 Pulse Ox 99 07/04/20 04:00 Intake & Output 07/03/20 07/04/20 07/04/20 18:59 06:59 18:59 Intake Total 818 350 120 Output Total 350 100 Balance 818 0 20 Weight 130.907 kg 134.5 kg Intake: Oral 818 350 120 Output: Urine 350 100 Other: Voiding Method Indwelling Catheter Indwelling Catheter - Labs CBC & Chem 7: 07/01/20 08:17 07/04/20 07:42 Labs: Abnormal Lab Results - Last 24 Hours (Table) 07/03/20 07/03/20 07/03/20 Range/Units 12:42 16:52 20:07 Sodium 130 L (137-145) mmol/L Chloride 95 L (98-107) mmol/L BUN 27 H (7-17) mg/dL Glucose 129 H (74-99) mg/dL POC Glucose (mg/dL) 154 H 124 H (75-99) mg/dL 07/04/20 07/04/20 07/04/20 Range/Units 06:18 07:42 12:02 Sodium 132 L (137-145) mmol/L Chloride 94 L (98-107) mmol/L BUN 31 H (7-17) mg/dL Glucose 127 H (74-99) mg/dL POC Glucose (mg/dL) 131 H 124 H (75-99) mg/dL Microbiology - Last 24 Hours (Table) 06/27/20 23:27 Urine Culture - Final Urine,Voided Proteus mirabilis Enterococcus faecalis VRE 06/27/20 23:30 Blood Culture - Final Blood No Growth after 144 hours 06/27/20 23:15 Blood Culture - Final Blood No Growth after 144 hours Assessment and Plan Plan: Assessment: 1. Hypervolemic hyponatremia. Improved with diuresis. Urine osmolality 416 and urine sodium 11. TSH 4.9. Sodium level CXXXII today. 2. Hypokalemia from diuresis. Replaced. Better. 3. Hypomagnesemia from diuresis. Replaced. Better. 4. Diabetes mellitus. 5. Acute on chronic diastolic CHF. 6. UTI with urine culture positive for Proteus maintained on antibiotics. 7. Altered mental status. Neurology following. Plan: Maintain oral Lasix. 1500 mL fluid restriction. Avoid nephrotoxins. Continue to monitor renal function and urine output.
--- NOTE | 2020-07-04 14:08 | P.DS ---
Providers Date of admission: 06/28/20 00:44 Expected date of discharge: 07/04/20 Attending physician: Florin Vu Consults: 06/28/20 00:44 Consult Physician Urgent Consulting Provider: Lucita Limon Consult Reason/Comments: nstemi Do you want consulting provider notified?: Yes 06/28/20 05:20 Consult Physician Urgent Consulting Provider: Yady Finnegan Consult Reason/Comments: breakthrough seizure Do you want consulting provider notified?: Yes 06/29/20 15:26 Consult Physician Routine Consulting Provider: Edwin Martinez Consult Reason/Comments: hyponatremia Do you want consulting provider notified?: Yes Primary care physician: Evangelist Talavera MD Hospital Course: History of presenting complaint: The patient is a 65-year-old female with an extensive PMH including dementia, severe obesity, bedridden at [facility], indwelling Nunez catheter, A. fib on Eliquis, seizure disorder, and stage IV decubitus ulcer who was sent in from the nursing facility due to worsening mental status. The patient was a very poor historian and thereby history obtained from the chart and the emergency room physician. The patient who is normally oriented to self and place as per the notes from [facility] was noted to have hematuria earlier on 06/27 along with worsening confusion for which she was sent in. The patient only answered basic questions such as her name and that she was at a hospital. She would simply stare when asked any additional questions. She underwent an extensive evaluation in the emergency room with a brain CT showing atrophy, mild hydrocephalus, and right-sided mastoiditis. EKG revealed sinus tachycardia with LVH at 125 bpm. Chest x-ray revealed a linear mild infiltrate and atelectasis at the lung bases with no CHF. Laboratory evaluation was remarkable for lactic acid 2.2, troponin 0.184, grossly abnormal UA, sodium 128, chloride 91, BUN 20, valproic acid level 42.5, and WBC count 14.2. Patient admitted with a diagnosis of acute metabolic encephalopathy from UTI. Placed an IV ceftriaxone. Troponin elevation felt to be from hemodynamic mismatch. Also found to have hyponatremia from hypervolemia. Given Lasix. Lactic acidosis type II that improved. Pressure ulcers as described below. Wound care team followed the same.. Patient is a total assist. Insulin- dependent a result. Patient able to come indicate. Patient remains a total assist. Able to move her arms a little bit. Today: Laying in bed. Awake. Tired. Answering questions.. Oral intake fair. Consultation: Dr. Maritnez from nephrology Dr. Pickens from neurology Dr. kaur for wound care On examination: VITAL SIGNS: Afebrile, 56, 16, 140/83, 99% room air GENERAL APPEARANCE: . Lying in bed, not in distress. HEENT: Normal external appearance of nose and ear. Oral cavity normal EYES: Pupils equal. Conjunctiva normal. NECK: JVD not raised. Mass not palpable. RESPIRATORY: Respiratory effort normal. Lungs decreased breath sounds. CARDIOVASCULAR: Heart sounds irregular. Some edema. ABDOMEN: Soft. Liver and spleen not palpable. No tenderness. No mass palpable. PSYCHIATRY: Answering questions NEUROLOGICAL: Cranials grossly intact. Weakness of all 4 limbs. Dermatological: See nursing notes/wound care INVESTIGATIONS, reviewed in the clinical context: July 04: Potassium 3.7 creatinine 0.63 July 03: Potassium 4.2 creatinine 0.55 Potassium 3.5 crit 0.65 Chest x-ray: Chronic parenchymal changes Cervical and lumbar spine CT: Nonspecific findings 2-D echocardiogram: Moderate concentric LVH. EF 55-60% EKG: Sinus tachycardia Computed tomography scan of the brain: Cerebral atrophy. Some Assessment and plan -Metabolic encephalopathy due to UTI, -improved Continue with antibiotics. Follow clinically -Acute UTI with cystitis secondary to Proteus, VRE On IV ceftriaxone-completed course. We will give her oral course of nitrofurantoin. For the VRE -Troponin elevation, likely due to hemodynamic mismatch. Seen by cardiology. Not for any further workup. -Hyponatremia/anasarca, likely hypovolemic. Given Lasix. Improved Lactic acidosis -Resolved. -Stage II pressure ulcer right buttocks with fat layer exposure, Stage II pressure ulcer right posterior thigh with fat layer exposure, Medial back pressure ulcer stage II with fat layer exposure, Pressure ulcer left calcaneus stage II with fat layer exposure, diabetic foot ulcer Wound care orders to be followed Diabetes mellitus type 2 Follow Accu-Cheks -Acute on chronic medical debility PT and OT -Persistent atrial fibrillation, rate controlled On eliquis -Hypokalemia and hypomagnesemia from diuresis Follow electrolytes -Hypothyroid Continue with Synthroid. TSH somewhat abnormal could be from patient being on amiodarone. -Moderate cognitive impairment likely from underlying dementia CODE STATUS: Full Code Disposition: [facility] Patient Condition at Discharge: Fair Plan - Discharge Summary New Discharge Prescriptions: New Amoxic-Pot Clav 875-125Mg [Augmentin 875-125] 1 each PO Q12HR #6 tab Atorvastatin [Lipitor] 80 mg PO DAILY tab Aspirin 81 mg PO DAILY chew Nitrofurantoin Monohyd/M-Cryst [Macrobid] 100 mg PO BID #14 cap Nitroglycerin Sl Tabs [Nitrostat] 0.4 mg SUBLINGUAL Q5M PRN tab PRN Reason: Chest Pain Continue Divalproex [Depakote] 250 mg PO TID@0600,1400,2200 Menthol-Zinc Oxide Oint [Calmoseptine Oint] 1 applic TOPICAL BID@0800,1999 Potassium Chloride ER [K-Dur 20] 20 meq PO DAILY@0800 Multivitamins, Thera [Multivitamin (formulary)] 1 tab PO DAILY@0800 Magnesium Oxide [Mag-Ox] 400 mg PO DAILY@0800 Levothyroxine Sodium [Synthroid] 50 mcg PO DAILY@0800 Furosemide [Lasix] 40 mg PO DAILY@0800 S.boulardii/B.coagulans/Fos [Diff-Stat 471 mg Capsule] 471 mg PO DAILY@0800 Prostat 30 ml PO BID Loperamide [Imodium] 2 mg PO Q6H PRN PRN Reason: Loose Stool INSULIN ASPART (NovoLOG) [NovoLOG (formulary)] See Protocol SQ ACHS Acetaminophen Tab [Tylenol] 650 mg PO Q6H PRN PRN Reason: Pain Or Fever > 100.5 Nystatin 100,000 Unit/gm Powd [Mycostatin Powder] 1 applic TOPICAL BID Metoprolol Tartrate [Lopressor] 50 mg PO BID@799,1999 Apixaban [Eliquis] 2.5 mg PO BID@799,1999 Zinc Oxide [Cozima] 1 applic TOPICAL HS@1999 Ergocalciferol (Vitamin D2) [Vitamin D2 (2000 Iu)] 50 mcg PO DAILY@0800 Discontinued Amiodarone [Cordarone] 200 mg PO BID@799,1999 Discharge Medication List Acetaminophen Tab [Tylenol] 650 mg PO Q6H PRN 06/28/20 [History] Apixaban [Eliquis] 2.5 mg PO BID@0800,199906/28/20 [History] Divalproex [Depakote] 250 mg PO TID@0600,1400,2200 06/28/20 [History] Ergocalciferol (Vitamin D2) [Vitamin D2 (2000 Iu)] 50 mcg PO DAILY@0800 06/28/20 [History] Furosemide [Lasix] 40 mg PO DAILY@0806/28/20 [History] INSULIN ASPART (NovoLOG) [NovoLOG (formulary)] See Protocol SQ ACHS 06/28/20 [History] Levothyroxine Sodium [Synthroid] 50 mcg PO DAILY@0806/28/20 [History] Loperamide [Imodium] 2 mg PO Q6H PRN 06/28/20 [History] Magnesium Oxide [Mag-Ox] 400 mg PO DAILY@0806/28/20 [History] Menthol-Zinc Oxide Oint [Calmoseptine Oint] 1 applic TOPICAL BID@799,199906/28/20 [History] Metoprolol Tartrate [Lopressor] 50 mg PO BID@08,199906/28/20 [History] Multivitamins, Thera [Multivitamin (formulary)] 1 tab PO DAILY@79906/28/20 [History] Nystatin 100,000 Unit/gm Powd [Mycostatin Powder] 1 applic TOPICAL BID 06/28/20 [History] Potassium Chloride ER [K-Dur 20] 20 meq PO DAILY@0806/28/20 [History] Prostat 30 ml PO BID 06/28/20 [History] S.boulardii/B.coagulans/Fos [Diff-Stat 471 mg Capsule] 471 mg PO DAILY@0806/28/20 [History] Zinc Oxide [Cozima] 1 applic TOPICAL HS@199906/28/20 [History] Amoxic-Pot Clav 875-125Mg [Augmentin 875-125] 1 each PO Q12HR #6 tab 07/04/20 [Rx] Aspirin 81 mg PO DAILY chew 07/04/20 [Rx] Atorvastatin [Lipitor] 80 mg PO DAILY tab 07/04/20 [Rx] Nitrofurantoin Monohyd/M-Cryst [Macrobid] 100 mg PO BID #14 cap 07/04/20 [Rx] Nitroglycerin Sl Tabs [Nitrostat] 0.4 mg SUBLINGUAL Q5M PRN tab 07/04/20 [Rx] Follow up Appointment(s)/Referral(s): Evangelist Talavera MD [Primary Care Provider] - 1-2 days Activity/Diet/Wound Care/Special Instructions: Make sure is given d/c instructions too.
[2020-07-04 14:26] VITALS: BP 125/63; PULSE 72; TEMP 97.6
== END 2020-07-04 16:41 | DRG 871 ==
LOC: EC 23:01 → 3SCARD 06-28 00:44 → OBSVTOIN 06-28 00:44 → 3SCARD 06-28 03:00
PROVIDERS: ADMIT Hospitalist; ATTEND Hospitalist
PROC: 05HD33Z Insertion of Infusion Device into Right Cephalic Vein, Percutaneous Approach (ICD-10-PCS; principal; 2020-06-28)
DX: A41.4 Sepsis due to anaerobes (principal); I21.A1 Myocardial infarction type 2; I50.33 Acute on chronic diastolic (congestive) heart failure; G92 Toxic encephalopathy; E87.2 Acidosis; G91.9 Hydrocephalus, unspecified; I48.19 Other persistent atrial fibrillation; E87.1 Hypo-osmolality and hyponatremia; Z68.42 Body mass index [BMI] 45.0-49.9, adult; J98.11 Atelectasis; N30.01 Acute cystitis with hematuria; L89.102 Pressure ulcer of unspecified part of back, stage 2; L89.222 Pressure ulcer of left hip, stage 2; L89.312 Pressure ulcer of right buttock, stage 2; H70.91 Unspecified mastoiditis, right ear; G40.409 Other generalized epilepsy and epileptic syndromes, not intractable, without status epilepticus; L89.522 Pressure ulcer of left ankle, stage 2; L89.892 Pressure ulcer of other site, stage 2; L89.622 Pressure ulcer of left heel, stage 2; E11.622 Type 2 diabetes mellitus with other skin ulcer; F03.90 Unspecified dementia, unspecified severity, without behavioral disturbance, psychotic disturbance, mood disturbance, and anxiety; J84.10 Pulmonary fibrosis, unspecified; E66.01 Morbid (severe) obesity due to excess calories; Z79.4 Long term (current) use of insulin; Z20.822 Contact with and (suspected) exposure to COVID-19; E87.6 Hypokalemia; E86.0 Dehydration; E83.42 Hypomagnesemia; E86.1 Hypovolemia; E03.9 Hypothyroidism, unspecified; M17.0 Bilateral primary osteoarthritis of knee; R09.02 Hypoxemia; I89.0 Lymphedema, not elsewhere classified; R26.9 Unspecified abnormalities of gait and mobility; Z79.01 Long term (current) use of anticoagulants; Z79.890 Hormone replacement therapy; Z79.899 Other long term (current) drug therapy; Z87.440 Personal history of urinary (tract) infections; Z87.891 Personal history of nicotine dependence; Z71.3 Dietary counseling and surveillance; Z74.01 Bed confinement status; Z88.5 Allergy status to narcotic agent; Z81.8 Family history of other mental and behavioral disorders
CPT/HCPCS: 36410; 36415; 70450; 71045; 72125; 72131; 76937; 80048; 80053; 80061; 80164; 80306; 80320; 81001; 82140; 82550; 82607; 82746; 83036; 83605; 83615; 83735; 83880; 83935; 84300; 84439; 84443; 84484; 84550; 85025; 85610; 85730; 86140; 87040; 87077; 87086; 87186; 87635; 93005; 93306; 99291

== ENCOUNTER 2020-09-01 10:20 | Emergency (ER) | payer BC, MEDICARE ==
[2020-09-01 10:39] VITALS: RESP 16; TEMP 97.6
--- NOTE | 2020-09-01 11:30 | ED ---
Skin/Abscess/FB HPI - General Chief complaint: Skin/Abscess/Foreign Body Stated complaint: pressue ulcer Source: patient, EMS, RN notes reviewed, old records reviewed Mode of arrival: EMS Limitations: no limitations, altered mental status - History of Present Illness Initial comments: 65-year-old female patient, morbidly obese, presents to the emergency room from medicine [place] for evaluation of a possible coccyx pressure ulcer infection. Patient has history of atrial fibrillation, diabetes, seizure disorder, lymphedema, encephalopathy, indwelling Nunez catheter and pulmonary fibrosis. Patient denies pain at this time. Is following simple commands. MD complaint: other (Coccyx pressure ulcer) Tetanus Up to Date: unsure Location: buttocks Severity scale (1-10): 0 - Related Data Home Medications Medication Instructions Recorded Confirmed Acetaminophen Tab [Tylenol] 650 mg PO Q6H PRN MDD 3 gram/06/28/20 09/01/20 hour Apixaban [Eliquis] 2.5 mg PO BID@0800,199906/28/20 09/01/20 Furosemide [Lasix] 40 mg PO DAILY@79906/28/20 09/01/20 INSULIN ASPART (NovoLOG) [NovoLOG See Protocol SQ ACHS 06/28/20 09/01/20 (formulary)] Levothyroxine Sodium [Synthroid] 50 mcg PO DAILY@79906/28/20 09/01/20 Loperamide [Imodium] 2 mg PO Q6H PRN 06/28/20 09/01/20 Magnesium Oxide [Mag-Ox] 400 mg PO DAILY@79906/28/20 09/01/20 Metoprolol Tartrate [Lopressor] 50 mg PO BID@0800,199906/28/20 09/01/20 Multivitamins, Thera [Multivitamin 1 tab PO DAILY@79906/28/20 09/01/20 (formulary)] Nystatin 100,000 Unit/gm Powd 1 applic TOPICAL BID 06/28/20 09/01/20 [Mycostatin Powder] Potassium Chloride ER [K-Dur 20] 20 meq PO DAILY@79906/28/20 09/01/20 S.boulardii/B.coagulans/Fos 942 mg PO DAILY@79906/28/20 09/01/20 [Diff-Stat 471 mg Capsule] Atorvastatin [Lipitor] 80 mg PO HS 09/01/20 09/01/20 Cholecalciferol [Vitamin D3 (25 50 mcg PO DAILY 09/01/20 09/01/20 Mcg = 1000 Iu)] Divalproex Sprinkle [Depakote 250 mg PO TID 09/01/20 09/01/20 Sprinkle] Methenamine Hippurate [Hiprex] 1 gm PO BID 09/01/20 09/01/20 Zinc Oxide 10% Ointment 1 applic TOPICAL BID 09/01/20 09/01/20 Zinc Oxide 10% Ointment 1 applic TOPICAL Q6H 09/01/20 09/01/20 Previous Rx's Medication Instructions Recorded Aspirin 81 mg PO DAILY chew 07/04/20 Nitroglycerin Sl Tabs [Nitrostat] 0.4 mg SUBLINGUAL Q5M PRN tab 07/04/20 Allergies Allergy/AdvReac Type Severity Reaction Status Date / Time codeine Allergy Rash/Hives Verified 09/01/20 13:02 Milk Containing Products Allergy Unknown Verified 09/01/20 13:02 Review of Systems ROS Statement: Those systems with pertinent positive or pertinent negative responses have been documented in the HPI. ROS Other: All systems not noted in ROS Statement are negative. 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 Absent: scleral icterus, conjunctival injection, nystagmus, periorbital swelling, periorbital tenderness Pupils: Present: normal accommodation ENT exam: Present: normal exam, normal oropharynx, mucous membranes moist Neck exam: Present: normal inspection, full ROM. Absent: tenderness, meningismus, lymphadenopathy, thyromegaly Respiratory exam: Present: normal lung sounds bilaterally. Absent: respiratory distress, wheezes, rales, rhonchi, stridor, chest wall tenderness, accessory muscle use Cardiovascular Exam: Present: regular rate, normal rhythm, normal heart sounds. Absent: systolic murmur, diastolic murmur, rubs, gallop, clicks GI/Abdominal exam: Present: soft, normal bowel sounds, hyperactive bowel sounds. Absent: distended, tenderness, guarding, rebound, rigid Extremities exam: Present: pedal edema, other (Lymphedema all 4 extremities). Absent: tenderness Neurological exam: Present: alert, CN II-XII intact Psychiatric exam: Present: normal affect, normal mood Skin exam: Present: warm, dry, normal color, other (There is a coccyx wound that is approximately 3 cm x 2 cm x 2 cm deep with packing in place. There is no exudate noted. ). Absent: cyanosis, diaphoretic, petechiae, pallor, mottled Course Vital Signs 09/01/20 09/01/20 10:32 11:39 Temperature 97.6 F Pulse Rate 75 63 Respiratory 16 16 Rate Blood Pressure 136/77 132/76 O2 Sat by Pulse 95 97 Oximetry Medical Decision Making - Medical Decision Making WBC count is 8.0, hemoglobin and hematocrit is 13 and 42, case discussed with Dr. Knight who states this is a chronic ulcer that can be treated at the long-term with wound care. Does not recommend admission. She was afebrile at 97.6. Case discussed with Dr. Dunn patient will be discharged back to the facility of [facility] for continuation of care. - Lab Data Result diagrams: 09/01/20 12:02 09/01/20 12:02 Lab Results 09/01/20 09/01/20 Range/Units 12:02 12:02 WBC 8.0 (3.8-10.6) k/uL RBC 4.51 (3.80-5.40) m/uL Hgb 13.2 (11.4-16.0) gm/dL Hct 42.3 (34.0-46.0) % MCV 93.9 (80.0-100.0) fL MCH 29.2 (25.0-35.0) pg MCHC 31.1 (31.0-37.0) g/dL RDW 14.6 (11.5-15.5) % Plt Count 361 (150-450) k/uL MPV 7.4 Neutrophils % 74 % Lymphocytes % 14 % Monocytes % 8 % Eosinophils % 1 % Basophils % 1 % Neutrophils # 5.9 (1.3-7.7) k/uL Lymphocytes # 1.1 (1.0-4.8) k/uL Monocytes # 0.7 (0-1.0) k/uL Eosinophils # 0.1 (0-0.7) k/uL Basophils # 0.0 (0-0.2) k/uL Sodium 132 L (137-145) mmol/L Potassium 4.0 (3.5-5.1) mmol/L Chloride 98 (98-107) mmol/L Carbon Dioxide 25 (22-30) mmol/L Anion Gap 9 mmol/L BUN 14 (7-17) mg/dL Creatinine 0.40 L (0.52-1.04) mg/dL Est GFR (CKD-EPI)AfAm >90 (>60 ml/min/1.73 sqM) Est GFR (CKD-EPI)NonAf >90 (>60 ml/min/1.73 sqM) Glucose 196 H (74-99) mg/dL Calcium 9.0 (8.4-10.2) mg/dL Total Bilirubin 0.4 (0.2-1.3) mg/dL AST 23 (14-36) U/L ALT 12 (4-34) U/L Alkaline Phosphatase 90 (38-126) U/L Total Protein 5.6 L (6.3-8.2) g/dL Albumin 2.7 L (3.5-5.0) g/dL Disposition Clinical Impression: Pressure ulcer of back, Pressure ulcer of right buttock, stage 2 Disposition: HOME SELF-CARE Condition: Fair Additional Instructions: White blood cell count is 8.0 hemoglobin and hematocrit is 13 and 42 respectively. Case discussed with Dr. Knight, patient can be treated outpatie nt with wound care. Is patient prescribed a controlled substance at d/c from ED?: No Referrals: Evangelist Talavera MD [Primary Care Provider] - 1-2 days Time of Disposition: 13:52
[2020-09-01 12:36] LABS: ALT 12 U/L (4-34); AST 23 U/L (14-36); African American GFR (CKD) >90 (>60 ml/min/1.73 sqM); Albumin 2.7 g/dL (3.5-5.0); Alkaline Phosphatase 90 U/L (38-126); Anion Gap 9 mmol/L; Basophils % (A) 1 %; Blood Urea Nitrogen 14 mg/dL (7-17); Carbon Dioxide 25 mmol/L (22-30); Chloride 98 mmol/L (98-107); Eosinophils # (A) 0.1 k/uL (0-0.7); Eosinophils % (A) 1 %; Glucose 196 mg/dL (74-99); HCT 42.3 % (34.0-46.0); HGB 13.2 gm/dL (11.4-16.0); Lymphocytes # (A) 1.1 k/uL (1.0-4.8); Lymphocytes % (A) 14 %; MCH 29.2 pg (25.0-35.0); MCHC 31.1 g/dL (31.0-37.0); MCV 93.9 fL (80.0-100.0); Mean Platelet Volume 7.4; Monocytes # (A) 0.7 k/uL (0-1.0); Monocytes % (A) 8 %; Neutrophils # (A) 5.9 k/uL (1.3-7.7); Neutrophils % (A) 74 %; Non-African American GFR(CKD) >90 (>60 ml/min/1.73 sqM); Platelet Count 361 k/uL (150-450); RBC 4.51 m/uL (3.80-5.40); RDW 14.6 % (11.5-15.5); Sodium 132 mmol/L (137-145); Total Bilirubin 0.4 mg/dL (0.2-1.3); Total Protein 5.6 g/dL (6.3-8.2)
[2020-09-01 14:49] VITALS: BP 126/73; PULSE 61
== END 2020-09-01 17:56 | disposition home or self-care (01) ==
LOC: EC 10:20
DX: I96 Gangrene, not elsewhere classified (principal); L89.312 Pressure ulcer of right buttock, stage 2; L89.109 Pressure ulcer of unspecified part of back, unspecified stage; L89.159 Pressure ulcer of sacral region, unspecified stage; E11.9 Type 2 diabetes mellitus without complications; E66.01 Morbid (severe) obesity due to excess calories; G40.909 Epilepsy, unspecified, not intractable, without status epilepticus; F17.200 Nicotine dependence, unspecified, uncomplicated; Z87.440 Personal history of urinary (tract) infections; Z79.01 Long term (current) use of anticoagulants; Z79.4 Long term (current) use of insulin; Z79.82 Long term (current) use of aspirin; Z79.899 Other long term (current) drug therapy; Z68.43 Body mass index [BMI] 50.0-59.9, adult
CPT/HCPCS: 36415; 80053; 85025; 99284